=== PATIENT | female | born 1940 | race Native Hawaiian/Other Pacific Islander ===

== ENCOUNTER 2016-08-30 11:04 | Emergency (ER) | payer SELFPAY ==
[2016-08-30] MEDS ORDERED: NAPROXEN 250 MG TABLET PO STA (12:42)
[2016-08-30] MEDS ORDERED: HYDROcod/ACETAM 5/325 MG TABLET PO STA (12:42)
[2016-08-30] MEDS ORDERED: SULFAMETH/TRIMETH DS 800/160 MG TABLET PO STA (12:42)
[2016-08-30] MEDS ORDERED: HYDROcod/ACETAM 5/325 MG TABLET ONE (12:44)
[2016-08-30] MEDS ORDERED: NAPROXEN 250 MG TABLET PO ONE (12:45)
[2016-08-30] MEDS ORDERED: SULFAMETH/TRIMETH DS 800/160 MG TABLET PO ONE (12:45)
== END 2016-08-30 14:27 | disposition home or self-care (01) ==
DX: L03.811 Cellulitis of head [any part, except face] (principal); H60.312 Diffuse otitis externa, left ear; I15.9 Secondary hypertension, unspecified; E11.9 Type 2 diabetes mellitus without complications; Z79.84 Long term (current) use of oral hypoglycemic drugs; Z86.73 Personal history of transient ischemic attack (TIA), and cerebral infarction without residual deficits; Z79.82 Long term (current) use of aspirin
CPT/HCPCS: 70450; 99283; 99284; A9270

== ENCOUNTER 2016-09-07 | Outpatient (CLI) | payer SELFPAY | END 2016-09-07 08:51 | disposition critical access hospital (66) | DX: R10.9 Unspecified abdominal pain (principal) | CPT/HCPCS: A0425; A0429 ==

== ENCOUNTER 2016-09-07 09:15 | Inpatient (IN) | payer SELFPAY ==
[2016-09-07] MEDS ORDERED: HYDROmorphone 1 MG/ML SYRINGE IVP STA ×2 (09:25→12:19)
[2016-09-07] MEDS ORDERED: ONDANSETRON 4 MG/2 ML VIAL IVP STA (09:25)
[2016-09-07] MEDS ORDERED: HYDROmorphone 1 MG/ML SYRINGE ONE ×2 (09:27→12:19)
[2016-09-07] MEDS ORDERED: ONDANSETRON 4 MG/2 ML VIAL ONE (09:27)
[2016-09-07] MEDS ORDERED: SODIUM CHLORIDE 0.9% 1,000 ML IV ONE ×2 (11:26)
[2016-09-07] MEDS ORDERED: PIPERACILLIN/TAZOBACTAM 4.5 GM in SODIUM CHLORIDE 0.9% MINIBAG 100 ML IV STA (13:24)
[2016-09-07] MEDS ORDERED: metroNIDAZOLE 500 MG/100 ML 100 ML IV ONE (13:24)
[2016-09-07] MEDS ORDERED: metroNIDAZOLE 500 MG/100 ML 100 ML ONE (13:43)
[2016-09-07] MEDS ORDERED: LACTATED RINGERS 1,000 ML IV ONE ×2 (14:06)
[2016-09-07] MEDS ORDERED: BUPIVACAINE 0.5%-EPI 1:200000 PF 30 ML VIAL SUBQ ONE ×2 (15:39)
[2016-09-07] MEDS ORDERED: GLUCAGON 1 MG/ML VIAL SUBQ PRN (16:08)
[2016-09-07] MEDS ORDERED: DEXTROSE 5% 1,000 ML IV PRN (16:08)
[2016-09-07] MEDS ORDERED: DEXTROSE GEL 37.5 GM TUBE PO PRN (16:08)
[2016-09-07] MEDS ORDERED: DEXTROSE 50% ABBOJECT 25 GM/50 ML SYRINGE IVP PRN (16:08)
[2016-09-07] MEDS ORDERED: ONDANSETRON 4 MG/2 ML VIAL IVP PRN (16:15)
[2016-09-07] MEDS ORDERED: PHENOL THROAT SPRAY 177 ML MM PRN (16:18)
[2016-09-07] MEDS ORDERED: HYDROmorphone 1 MG/ML SYRINGE IVP ONE (16:23)
[2016-09-07] MEDS ORDERED: D5NS W/20 MEQ KCL 1,000 ML IV SCH (17:00)
[2016-09-07] MEDS: PIPERACILLIN/TAZOBACTAM 3.375 GM in SODIUM CHLORIDE 0.9% MINIBAG 100 ML IV SCH (18:03)
[2016-09-07] MEDS: HYDROmorphone 1 MG/ML SYRINGE IVP PRN (19:30)
[2016-09-07] MEDS: PANTOPRAZOLE 40 MG VIAL IVP SCH (21:32)
[2016-09-07] MEDS: SODIUM CHLORIDE FLUSH 0.9% 10 ML SYRINGE IVP SCH (21:32)
[2016-09-07] MEDS: NS W/20 MEQ KCL 1,000 ML IV SCH (21:52)
[2016-09-08] MEDS: PIPERACILLIN/TAZOBACTAM 3.375 GM in SODIUM CHLORIDE 0.9% MINIBAG 100 ML IV SCH ×3 (00:18→11:34)
[2016-09-08] MEDS: INSULIN REGULAR HUMAN 100 UNIT/1 ML 10 ML MDV SUBQ SCH ×4 (00:30→19:32)
[2016-09-08] MEDS: HYDROmorphone 1 MG/ML SYRINGE IVP PRN ×3 (02:31→08:29)
[2016-09-08] MEDS: SODIUM CHLORIDE FLUSH 0.9% 10 ML SYRINGE IVP SCH ×3 (05:27→21:37)
[2016-09-08] MEDS ORDERED: HYDROmorphone PCA 10 MG IV PRN (09:10)
[2016-09-08] MEDS ORDERED: diphenhydrAMINE INJ 50 MG/ML VIAL IVP PRN (09:10)
[2016-09-08] MEDS: SODIUM CHLORIDE FLUSH 0.9% 10 ML SYRINGE IVP PRN (09:51)
[2016-09-08] MEDS: PANTOPRAZOLE 40 MG VIAL IVP SCH ×2 (09:51→21:37)
[2016-09-08] MEDS: NS W/20 MEQ KCL 1,000 ML IV SCH (09:52)
[2016-09-08] MEDS ORDERED: cloNIDine 0.2 MG PATCH TOP SCH (10:00)
[2016-09-08] MEDS: ENALAPRILAT 1.25 MG/ML VIAL IVP SCH ×2 (11:34→17:57)
[2016-09-08] MEDS: METOPROLOL 5 MG/5 ML VIAL IVP SCH ×3 (11:35→23:16)
[2016-09-08] MEDS ORDERED: hydrALAZINE INJ 20 MG/ML VIAL IVP SCH (21:21)
[2016-09-09] MEDS: NS W/20 MEQ KCL 1,000 ML IV SCH ×5 (00:52→15:10)
[2016-09-09] MEDS: ENALAPRILAT 1.25 MG/ML VIAL IVP SCH ×4 (02:00→20:32)
[2016-09-09] MEDS: INSULIN REGULAR HUMAN 100 UNIT/1 ML 10 ML MDV SUBQ SCH ×4 (02:54→17:58)
[2016-09-09] MEDS: SODIUM CHLORIDE FLUSH 0.9% 10 ML SYRINGE IVP SCH ×4 (05:12→20:32)
[2016-09-09] MEDS: METOPROLOL 5 MG/5 ML VIAL IVP SCH ×3 (05:12→18:21)
[2016-09-09] MEDS: PANTOPRAZOLE 40 MG VIAL IVP SCH ×2 (08:54→20:31)
[2016-09-09] MEDS: SODIUM CHLORIDE FLUSH 0.9% 10 ML SYRINGE IVP PRN ×2 (08:54→18:24)
[2016-09-09] MEDS ORDERED: SODIUM CHLORIDE FLUSH 0.9% 10 ML SYRINGE IVP PRN (09:06)
[2016-09-09] MEDS ORDERED: SODIUM CHLORIDE INHALATION 3 ML NEB ONE (17:02)
[2016-09-10] MEDS: SODIUM CHLORIDE FLUSH 0.9% 10 ML SYRINGE IVP SCH ×7 (17:11→22:43)
[2016-09-10] MEDS: PANTOPRAZOLE 40 MG VIAL IVP SCH ×2 (17:13→20:47)
[2016-09-10] MEDS: METOPROLOL 5 MG/5 ML VIAL IVP SCH ×3 (17:13→19:17)
[2016-09-10] MEDS: ENALAPRILAT 1.25 MG/ML VIAL IVP SCH ×4 (17:13→20:47)
[2016-09-10] MEDS: NS W/20 MEQ KCL 1,000 ML IV SCH ×3 (17:13→20:48)
[2016-09-10] MEDS: INSULIN REGULAR HUMAN 100 UNIT/1 ML 10 ML MDV SUBQ SCH ×3 (17:13→18:44)
[2016-09-10] MEDS: SODIUM CHLORIDE FLUSH 0.9% 10 ML SYRINGE IVP PRN (19:22)
[2016-09-10] MEDS ORDERED: cloNIDine 0.3 MG PATCH TOP SCH (22:00)
[2016-09-11] MEDS ORDERED: cloNIDine 0.2 MG PATCH TOP SCH
[2016-09-11] MEDS ORDERED: cloNIDine 0.1 MG PATCH TOP SCH
[2016-09-11] MEDS: METOPROLOL 5 MG/5 ML VIAL IVP SCH ×4 (00:21→18:04)
[2016-09-11] MEDS: ENALAPRILAT 1.25 MG/ML VIAL IVP SCH ×4 (01:45→20:07)
[2016-09-11] MEDS: NS W/20 MEQ KCL 1,000 ML IV SCH ×2 (07:07→16:55)
[2016-09-11] MEDS: PANTOPRAZOLE 40 MG VIAL IVP SCH ×2 (07:07→20:08)
[2016-09-11] MEDS: INSULIN REGULAR HUMAN 100 UNIT/1 ML 10 ML MDV SUBQ SCH ×4 (07:38→18:04)
[2016-09-11] MEDS: SODIUM CHLORIDE FLUSH 0.9% 10 ML SYRINGE IVP SCH ×6 (07:39→20:09)
[2016-09-11] MEDS: ENOXAPARIN 40 MG/0.4 ML SYRINGE SUBQ SCH (11:51)
[2016-09-11] MEDS: hydrALAZINE INJ 20 MG/ML VIAL IVP PRN ×3 (12:48→21:29)
[2016-09-11] MEDS ORDERED: LEVALBUTEROL 1.25 MG INH PRN (13:00)
[2016-09-12] MEDS: METOPROLOL 5 MG/5 ML VIAL IVP SCH ×4 (00:09→18:07)
[2016-09-12] MEDS: INSULIN REGULAR HUMAN 100 UNIT/1 ML 10 ML MDV SUBQ SCH ×4 (01:41→18:15)
[2016-09-12] MEDS: ENALAPRILAT 1.25 MG/ML VIAL IVP SCH ×4 (01:45→19:20)
[2016-09-12] MEDS: NS W/20 MEQ KCL 1,000 ML IV SCH ×2 (01:48→11:57)
[2016-09-12] MEDS: SODIUM CHLORIDE FLUSH 0.9% 10 ML SYRINGE IVP SCH ×6 (05:33→22:48)
[2016-09-12] MEDS: PIPERACILLIN/TAZOBACTAM 3.375 GM in SODIUM CHLORIDE 0.9% MINIBAG 100 ML IV SCH ×3 (09:52→22:46)
[2016-09-12] MEDS: ENOXAPARIN 40 MG/0.4 ML SYRINGE SUBQ SCH (09:53)
[2016-09-12] MEDS: PANTOPRAZOLE 40 MG VIAL IVP SCH ×2 (09:54→22:35)
[2016-09-12] MEDS: SODIUM CHLORIDE FLUSH 0.9% 10 ML SYRINGE IVP PRN (09:55)
[2016-09-12] MEDS ORDERED: VANCOMYCIN INJ 2 GM in SODIUM CHLORIDE 0.9% 500 ML IV SCH (10:00)
[2016-09-12] MEDS ORDERED: D5NS W/20 MEQ KCL 1,000 ML IV ONE (12:05)
[2016-09-12] MEDS: hydrALAZINE INJ 20 MG/ML VIAL IVP PRN ×2 (13:21→18:50)
[2016-09-13] MEDS: METOPROLOL 5 MG/5 ML VIAL IVP SCH ×3 (00:01→13:23)
[2016-09-13] MEDS: VANCOMYCIN INJ 1 GM, VANCOMYCIN INJ 250 MG in SODIUM CHLORIDE 0.9% 250 ML IV SCH ×3 (00:07→21:53)
[2016-09-13] MEDS: INSULIN REGULAR HUMAN 100 UNIT/1 ML 10 ML MDV SUBQ SCH ×4 (00:17→16:54)
[2016-09-13] MEDS: PIPERACILLIN/TAZOBACTAM 3.375 GM in SODIUM CHLORIDE 0.9% MINIBAG 100 ML IV SCH ×4 (02:05→21:37)
[2016-09-13] MEDS: ENALAPRILAT 1.25 MG/ML VIAL IVP SCH ×4 (02:05→20:13)
[2016-09-13] MEDS: SODIUM CHLORIDE FLUSH 0.9% 10 ML SYRINGE IVP SCH ×6 (03:16→21:55)
[2016-09-13] MEDS: hydrALAZINE INJ 20 MG/ML VIAL IVP PRN (09:22)
[2016-09-13] MEDS: SODIUM CHLORIDE FLUSH 0.9% 10 ML SYRINGE IVP PRN ×2 (09:47→15:08)
[2016-09-13] MEDS: ENOXAPARIN 40 MG/0.4 ML SYRINGE SUBQ SCH (09:47)
[2016-09-13] MEDS: PANTOPRAZOLE 40 MG VIAL IVP SCH ×2 (09:47→21:41)
[2016-09-13] MEDS: OFLOXACIN 0.3% OPHTH DROPS EACHEAR SCH ×3 (13:19→21:56)
[2016-09-13] MEDS: D5.45NS W/20 MEQ KCL 1,000 ML IV SCH (13:20)
[2016-09-13] MEDS ORDERED: hydrALAZINE INJ 20 MG/ML VIAL IM SCH (15:00)
[2016-09-13] MEDS ORDERED: hydrALAZINE INJ 20 MG/ML VIAL IVP SCH ×2 (15:00→18:35)
[2016-09-13] MEDS ORDERED: diltiaZEM INJ 5 MG/ML VIAL IVP ONE (16:00)
[2016-09-13] MEDS: LABETALOL 20 MG/4 ML SYRINGE IVP PRN (17:26)
[2016-09-13] MEDS ORDERED: SODIUM CHLORIDE INHALATION 3 ML NEB ONE (17:29)
[2016-09-13] MEDS: hydrALAZINE INJ 20 MG/ML VIAL IVP SCH (21:42)
[2016-09-14] MEDS: INSULIN REGULAR HUMAN 100 UNIT/1 ML 10 ML MDV SUBQ SCH ×4 (00:35→18:43)
[2016-09-14] MEDS: SODIUM CHLORIDE FLUSH 0.9% 10 ML SYRINGE IVP PRN (01:09)
[2016-09-14] MEDS: LABETALOL 20 MG/4 ML SYRINGE IVP PRN (01:09)
[2016-09-14] MEDS: ENALAPRILAT 1.25 MG/ML VIAL IVP SCH ×4 (02:44→20:19)
[2016-09-14] MEDS: PIPERACILLIN/TAZOBACTAM 3.375 GM in SODIUM CHLORIDE 0.9% MINIBAG 100 ML IV SCH ×4 (04:27→20:21)
[2016-09-14] MEDS: hydrALAZINE INJ 20 MG/ML VIAL IVP SCH ×4 (04:27→21:59)
[2016-09-14] MEDS: SODIUM CHLORIDE FLUSH 0.9% 10 ML SYRINGE IVP SCH ×6 (06:21→22:01)
[2016-09-14] MEDS: OFLOXACIN 0.3% OPHTH DROPS EACHEAR SCH ×3 (06:38→22:00)
[2016-09-14] MEDS: D5.45NS W/20 MEQ KCL 1,000 ML IV SCH (06:38)
[2016-09-14] MEDS ORDERED: DIATR MEGLU/DIATRIZOATE SODIUM 120 ML BOTTLE PO ONE (09:24)
[2016-09-14] MEDS: ENOXAPARIN 40 MG/0.4 ML SYRINGE SUBQ SCH (09:47)
[2016-09-14] MEDS: VANCOMYCIN INJ 1 GM, VANCOMYCIN INJ 250 MG in SODIUM CHLORIDE 0.9% 250 ML IV SCH (10:42)
[2016-09-14] MEDS: cloNIDine 0.1 MG TABLET PO SCH ×2 (14:14→20:20)
[2016-09-14] MEDS ORDERED: POTASSIUM CHLORIDE 20 MEQ TABLET PO ONE (14:45)
[2016-09-14] MEDS: MAGNESIUM SULFATE 2 GRAM 50 ML IV SCH ×2 (15:06→16:29)
[2016-09-14] MEDS ORDERED: oxyCOD/ACETAMIN 5 MG/325 MG TABLET PO PRN (17:42)
[2016-09-15] MEDS: INSULIN REGULAR HUMAN 100 UNIT/1 ML 10 ML MDV SUBQ SCH ×3 (00:44→11:35)
[2016-09-15] MEDS: D5.45NS W/20 MEQ KCL 1,000 ML IV SCH (00:46)
[2016-09-15] MEDS: ENALAPRILAT 1.25 MG/ML VIAL IVP SCH ×2 (02:19→08:28)
[2016-09-15] MEDS: hydrALAZINE INJ 20 MG/ML VIAL IVP SCH ×2 (03:46→10:14)
[2016-09-15] MEDS: PIPERACILLIN/TAZOBACTAM 3.375 GM in SODIUM CHLORIDE 0.9% MINIBAG 100 ML IV SCH ×2 (03:47→08:39)
[2016-09-15] MEDS: OFLOXACIN 0.3% OPHTH DROPS EACHEAR SCH (07:05)
[2016-09-15] MEDS: SODIUM CHLORIDE FLUSH 0.9% 10 ML SYRINGE IVP SCH ×2 (07:06)
[2016-09-15] MEDS ORDERED: NEUTRA-PHOS 250 MG TABLET PO SCH (08:00)
[2016-09-15] MEDS ORDERED: POTASSIUM CHLORIDE 20 MEQ TABLET PO SCH (08:00)
[2016-09-15] MEDS: cloNIDine 0.1 MG TABLET PO SCH (08:27)
[2016-09-15] MEDS: ENOXAPARIN 40 MG/0.4 ML SYRINGE SUBQ SCH (08:41)
[2016-09-15] MEDS ORDERED: LIDOCAINE-MPF 2% 5 ML VIAL IM ONE (12:49)
[2016-09-15] MEDS ORDERED: ESMOLOL 100 MG/10 ML VIAL IVP ONE (12:49)
[2016-09-15] MEDS ORDERED: NEOSTIGMINE 1 MG/1 ML 10 ML MDV IVP ONE (12:49)
[2016-09-15] MEDS ORDERED: ACETAMINOPHEN 1,000 MG/100 ML VIAL IV ONE (12:49)
[2016-09-15] MEDS ORDERED: GLYCOPYRROLATE 1 MG/5 ML VIAL IVP ONE (12:49)
[2016-09-15] MEDS ORDERED: SUCCINYLCHOLINE 200 MG/10 ML VIAL IVP ONE (12:49)
[2016-09-15] MEDS ORDERED: METOPROLOL 5 MG/5 ML VIAL IVP ONE (12:49)
[2016-09-15] MEDS ORDERED: PROPOFOL 200 MG/20 ML VIAL IVP ONE (12:49)
[2016-09-15] MEDS ORDERED: ONDANSETRON 4 MG/2 ML VIAL IVP ONE (12:49)
[2016-09-15] MEDS ORDERED: ROCURONIUM 50 MG/5 ML VIAL IVP ONE (12:49)
[2016-09-15] MEDS ORDERED: PHENYLEPHRINE 50 MG/5 ML VIAL IV ONE (12:49)
== END 2016-09-15 12:50 | disposition home or self-care (01) | DRG 329 ==
PROC: 0DU907Z Supplement Duodenum with Autologous Tissue Substitute, Open Approach (ICD-10-PCS; principal; 2016-09-07 14:00)
DX: K26.5 Chronic or unspecified duodenal ulcer with perforation (principal); K65.9 Peritonitis, unspecified; E87.1 Hypo-osmolality and hyponatremia; E87.6 Hypokalemia; E83.39 Other disorders of phosphorus metabolism; E83.42 Hypomagnesemia; I11.9 Hypertensive heart disease without heart failure; K74.60 Unspecified cirrhosis of liver; E11.65 Type 2 diabetes mellitus with hyperglycemia; E11.39 Type 2 diabetes mellitus with other diabetic ophthalmic complication; E66.01 Morbid (severe) obesity due to excess calories; Z68.33 Body mass index [BMI] 33.0-33.9, adult; H60.312 Diffuse otitis externa, left ear; Z86.73 Personal history of transient ischemic attack (TIA), and cerebral infarction without residual deficits; Z87.891 Personal history of nicotine dependence; Z79.2 Long term (current) use of antibiotics; Z79.84 Long term (current) use of oral hypoglycemic drugs; Z79.82 Long term (current) use of aspirin; Z79.899 Other long term (current) drug therapy; Z66 Do not resuscitate

== ENCOUNTER 2016-09-22 10:30 | Outpatient (CLI) | payer SELFPAY ==
[2016-09-22 19:12] LABS: BASOPHILS # (AUTO) 0.1 10^3/uL (0.0-0.1); BASOPHILS % (AUTO) 1.1 %; EOSINOPHILS # (AUTO) 0.4 10^3/uL (0.0-0.7); EOSINOPHILS % (AUTO) 3.7 %; HCT - HEMATOCRIT 40.8 % (37.0-47.0); HGB - HEMOGLOBIN 13.3 g/dL (12.0-16.0); LYMPHOCYTES # (AUTO) 1.1 10^3/uL (1.5-3.5); LYMPHOCYTES % (AUTO) 10.4 %; MEAN CORPUSCULAR HEMOGLOBIN 27.6 pg (27.0-31.0); MEAN CORPUSCULAR HGB CONC 32.6 g/dL (32.0-36.0); MEAN CORPUSCULAR VOLUME 84.7 fL (81.0-99.0); MEAN PLATELET VOLUME 8.3 fL (7.9-10.8); MONOCYTES # (AUTO) 0.9 10^3/uL (0.0-1.0); MONOCYTES % (AUTO) 8.4 %; NEUTROPHILS # (AUTO) 8.2 10^3/uL (1.5-6.6); NEUTROPHILS % (AUTO) 76.4 %; RED BLOOD COUNT 4.82 10^6/uL (4.20-5.40); RED CELL DISTRIBUTION WIDTH 13.9 % (12.0-15.0); UNCORRECTED WHITE BLOOD COUNT 10.7 x10^3/uL; WHITE BLOOD COUNT 10.7 x10^3/uL (4.8-10.8)
[2016-09-22 19:22] LABS: ALBUMIN/GLOBULIN RATIO 0.9 (1.0-2.2); BILIRUBIN,TOTAL 0.9 mg/dL (0.2-1.0); CALCIUM 9.5 mg/dL (8.5-10.3); CREATININE 0.7 mg/dL (0.4-1.0); MAGNESIUM 1.7 mg/dL (1.7-2.8); PHOSPHORUS 2.9 mg/dL (2.5-4.6); POTASSIUM 2.8 mmol/L (3.5-5.0); TOTAL PROTEIN 7.5 g/dL (6.7-8.2)
== END 2016-09-22 10:31 | disposition home or self-care (01) ==
LOC: LAB.N 10:30
PROVIDERS: ATTEND Family Medicine
DX: E87.6 Hypokalemia (principal); E83.39 Other disorders of phosphorus metabolism; E83.42 Hypomagnesemia; I10 Essential (primary) hypertension
CPT/HCPCS: 36415; 80053; 83735; 84100; 85025

== ENCOUNTER 2016-10-10 11:21 | Outpatient (CLI) | payer SELFPAY | END 2016-10-10 11:22 | disposition home or self-care (01) | DX: E87.6 Hypokalemia (principal); I10 Essential (primary) hypertension ==

== ENCOUNTER 2016-10-30 12:23 | Inpatient (IN) | payer SELFPAY ==
[2016-10-30] MEDS ORDERED: SODIUM CHLORIDE 0.9% 1,000 ML IV ONE ×2 (12:43)
[2016-10-30] MEDS ORDERED: SODIUM CHLORIDE FLUSH 0.9% 10 ML SYRINGE IVP PRN (15:35)
[2016-10-30] MEDS ORDERED: ONDANSETRON 4 MG/2 ML VIAL IVP PRN (15:35)
[2016-10-30] MEDS ORDERED: IOPAMIDOL-300 100 ML VIAL IVP ONE (15:58)
[2016-10-30] MEDS: INSULIN ASPART 300 UNIT/3 ML PEN SUBQ SCH ×2 (17:34→21:44)
[2016-10-30] MEDS: SUCRALFATE 1 GM/10 ML UDC PO SCH ×2 (17:36→21:44)
[2016-10-30] MEDS: PANTOPRAZOLE 40 MG TABLET PO SCH (17:36)
[2016-10-30] MEDS: SODIUM CHLORIDE 0.9% 1,000 ML IV SCH (17:36)
[2016-10-30] MEDS: SODIUM CHLORIDE FLUSH 0.9% 10 ML SYRINGE IVP SCH (21:40)
[2016-10-30] MEDS ORDERED: ACETAMINOPHEN 325 MG TABLET PO PRN (23:05)
[2016-10-30] MEDS ORDERED: AMOX/CLAV 875 MG/125 MG TABLET PO SCH (23:45)
[2016-10-31] MEDS: SODIUM CHLORIDE 0.9% 1,000 ML IV SCH (01:24)
[2016-10-31] MEDS: PANTOPRAZOLE 40 MG TABLET PO SCH (06:36)
[2016-10-31] MEDS: SUCRALFATE 1 GM/10 ML UDC PO SCH ×2 (06:36→12:02)
[2016-10-31] MEDS: SODIUM CHLORIDE FLUSH 0.9% 10 ML SYRINGE IVP SCH ×2 (06:47→12:04)
[2016-10-31] MEDS ORDERED: BISACODYL 10 MG SUPP PR ONE (08:00)
[2016-10-31] MEDS ORDERED: POTASSIUM CHLORIDE 20 MEQ TABLET PO SCH (08:00)
[2016-10-31] MEDS ORDERED: SACCHAROMYCES BOULARDII 250 MG CAPSULE PO SCH (08:00)
[2016-10-31] MEDS ORDERED: POLYETHYLENE GLYCOL 3350 17 GM PACKET PO SCH (09:00)
[2016-10-31] MEDS ORDERED: AMOX/CLAV 500 MG/125 MG TABLET PO SCH (09:00)
[2016-10-31] MEDS: INSULIN ASPART 300 UNIT/3 ML PEN SUBQ SCH ×2 (09:02→12:00)
[2016-10-31] MEDS: LIDOCAINE JELLY 2% 5 ML TUBE TOP ONE ×2 (09:35→11:45)
[2016-10-31] MEDS ORDERED: WITCH HAZEL/GLYCERIN 1 EACH MED..PAD TOP PRN (11:01)
[2016-10-31] MEDS ORDERED: LIDOCAINE TOPICAL 4% 50 ML BOTTLE MM PRN (13:01)
[2016-10-31] MEDS ORDERED: LIDOCAINE JELLY 2% 30 ML TUBE TOP PRN (13:16)
[2016-10-31] MEDS ORDERED: LIDOCAINE JELLY 2% 5 ML TUBE TOP PRN (13:18)
== END 2016-10-31 16:45 | disposition home or self-care (01) | DRG 641 ==
DX: E87.1 Hypo-osmolality and hyponatremia (principal); K56.41 Fecal impaction; D72.829 Elevated white blood cell count, unspecified; E86.9 Volume depletion, unspecified; I10 Essential (primary) hypertension; E11.9 Type 2 diabetes mellitus without complications; H66.90 Otitis media, unspecified, unspecified ear; D69.6 Thrombocytopenia, unspecified; E66.9 Obesity, unspecified; Z68.27 Body mass index [BMI] 27.0-27.9, adult; I25.10 Atherosclerotic heart disease of native coronary artery without angina pectoris; Z87.11 Personal history of peptic ulcer disease; Z79.84 Long term (current) use of oral hypoglycemic drugs; Z79.82 Long term (current) use of aspirin; Z79.899 Other long term (current) drug therapy; Z86.73 Personal history of transient ischemic attack (TIA), and cerebral infarction without residual deficits; Z87.891 Personal history of nicotine dependence; Z66 Do not resuscitate

== ENCOUNTER 2016-11-02 09:27 | Outpatient (CLI) | payer SELFPAY | END 2016-11-02 23:59 | DX: E87.1 Hypo-osmolality and hyponatremia (principal) ==

== ENCOUNTER 2016-11-03 10:18 | Outpatient (CLI) | payer SELFPAY | END 2016-11-03 10:19 | disposition home or self-care (01) | DX: E87.1 Hypo-osmolality and hyponatremia (principal); E83.42 Hypomagnesemia; E87.6 Hypokalemia ==

== ENCOUNTER 2016-11-04 05:11 | Outpatient (CLI) | payer SELFPAY | END 2016-11-04 05:12 | disposition critical access hospital (66) | DX: R53.1 Weakness (principal); R47.81 Slurred speech | CPT/HCPCS: A0425; A0429 ==

== ENCOUNTER 2016-11-04 05:29 | Inpatient (IN) | payer SELFPAY ==
[2016-11-04] MEDS ORDERED: METOPROLOL 5 MG/5 ML VIAL IVP STA ×3 (05:41→06:33)
[2016-11-04] MEDS ORDERED: METOPROLOL 5 MG/5 ML VIAL IVP ONE ×4 (05:50→11:02)
[2016-11-04] MEDS ORDERED: NITROGLYCERIN 2% PASTE TOP STA (06:33)
[2016-11-04] MEDS ORDERED: SODIUM CHLORIDE 0.9% 500 ML IV ONE (06:33)
[2016-11-04] MEDS ORDERED: IOPAMIDOL-300 100 ML VIAL IVP ONE (07:29)
[2016-11-04] MEDS ORDERED: NITROGLYCERIN 2% PASTE TOP ONE (07:30)
[2016-11-04] MEDS ORDERED: ASPIRIN CHEW 81 MG TABLET PO STA (07:55)
[2016-11-04] MEDS ORDERED: MORPHINE 2 MG/ML SYRINGE IVP STA (07:55)
[2016-11-04] MEDS ORDERED: cefTRIAXone 1 GM in SODIUM CHLORIDE 0.9% MINIBAG 100 ML IV STA (08:02)
[2016-11-04] MEDS ORDERED: POTASSIUM BICARB 25 MEQ TABLET PO STA (08:02)
[2016-11-04] MEDS ORDERED: POTASSIUM CHLOR 10 MEQ/100 ML 100 ML IV ONE ×3 (08:02→12:51)
[2016-11-04] MEDS ORDERED: POTASSIUM BICARB 25 MEQ TABLET PO ONE (08:03)
[2016-11-04] MEDS ORDERED: ASPIRIN CHEW 81 MG TABLET ONE (08:03)
[2016-11-04] MEDS ORDERED: MORPHINE 2 MG/ML SYRINGE ONE (08:03)
[2016-11-04] MEDS ORDERED: cefTRIAXone 1 GM VIAL ONE (08:04)
[2016-11-04] MEDS ORDERED: LABETALOL 20 MG/4 ML SYRINGE IVP STA (09:10)
[2016-11-04] MEDS ORDERED: LABETALOL 20 MG/4 ML SYRINGE IVP ONE (09:11)
[2016-11-04] MEDS ORDERED: ONDANSETRON ODT 4 MG TABLET TL PRN (09:59)
[2016-11-04] MEDS ORDERED: SODIUM CHLORIDE FLUSH 0.9% 10 ML SYRINGE IVP PRN (09:59)
[2016-11-04] MEDS ORDERED: SODIUM CHLORIDE 0.9% 1,000 ML IV SCH (10:00)
[2016-11-04] MEDS ORDERED: PANTOPRAZOLE 40 MG TABLET PO SCH (10:00)
[2016-11-04] MEDS ORDERED: ACETAMINOPHEN 325 MG TABLET PO PRN (10:32)
[2016-11-04] MEDS ORDERED: GADOBUTROL 7.5 MMOL/7.5 ML VIAL IVP ONE (10:33)
[2016-11-04] MEDS ORDERED: METOPROLOL TARTRATE 25 MG TABLET PO SCH (11:00)
[2016-11-04] MEDS ORDERED: POTASSIUM CHLORIDE 20 MEQ TABLET PO SCH (11:00)
[2016-11-04] MEDS: SODIUM CHLORIDE FLUSH 0.9% 10 ML SYRINGE IVP SCH ×2 (12:55→21:33)
[2016-11-04] MEDS: PANTOPRAZOLE 40 MG TABLET PO SCH (12:55)
[2016-11-04] MEDS: LISINOPRIL 5 MG TABLET PO SCH (12:55)
[2016-11-04] MEDS: INSULIN ASPART 300 UNIT/3 ML PEN SUBQ SCH ×2 (17:45→21:33)
[2016-11-04] MEDS: cloNIDine 0.1 MG TABLET PO SCH (21:28)
[2016-11-04] MEDS: POTASSIUM CHLOR 10 MEQ/100 ML 100 ML IV SCH (22:57)
[2016-11-04] MEDS: SODIUM CHLORIDE 0.9% 1,000 ML IV SCH (22:57)
[2016-11-05] MEDS: POTASSIUM CHLOR 10 MEQ/100 ML 100 ML IV SCH ×3 (00:06→02:07)
[2016-11-05] MEDS: PANTOPRAZOLE 40 MG TABLET PO SCH (06:11)
[2016-11-05] MEDS: SODIUM CHLORIDE FLUSH 0.9% 10 ML SYRINGE IVP SCH ×3 (06:19→20:27)
[2016-11-05] MEDS ORDERED: METOPROLOL SUCCINATE 50 MG TABLET PO SCH (09:00)
[2016-11-05] MEDS ORDERED: CIPROFLOXACIN 400 MG/200 ML 200 ML IV SCH ×2 (09:00→18:00)
[2016-11-05] MEDS ORDERED: levoFLOXacin 250 MG TABLET PO SCH (09:00)
[2016-11-05] MEDS: LISINOPRIL 5 MG TABLET PO SCH (09:08)
[2016-11-05] MEDS: cloNIDine 0.1 MG TABLET PO SCH ×2 (09:09→20:14)
[2016-11-05] MEDS: POLYETHYLENE GLYCOL 3350 17 GM PACKET PO SCH (09:12)
[2016-11-05] MEDS: ASPIRIN EC 81 MG TABLET PO SCH (09:18)
[2016-11-05] MEDS: INSULIN ASPART 300 UNIT/3 ML PEN SUBQ SCH ×4 (09:22→21:24)
[2016-11-05] MEDS: ENOXAPARIN 40 MG/0.4 ML SYRINGE SUBQ SCH (09:23)
[2016-11-05] MEDS: SODIUM CHLORIDE 0.9% 1,000 ML IV SCH ×2 (15:34→17:35)
[2016-11-05] MEDS: PIPERACILLIN/TAZOBACTAM 3.375 GM in SODIUM CHLORIDE 0.9% MINIBAG 100 ML IV SCH (18:54)
[2016-11-05] MEDS: ACETAMINOPHEN 325 MG TABLET PO PRN (19:27)
[2016-11-05] MEDS: METOPROLOL SUCCINATE 50 MG TABLET PO SCH (20:14)
[2016-11-06] MEDS: PIPERACILLIN/TAZOBACTAM 3.375 GM in SODIUM CHLORIDE 0.9% MINIBAG 100 ML IV SCH ×5 (01:54→23:58)
[2016-11-06] MEDS: SODIUM CHLORIDE FLUSH 0.9% 10 ML SYRINGE IVP SCH ×3 (06:38→20:27)
[2016-11-06] MEDS: PANTOPRAZOLE 40 MG TABLET PO SCH (06:46)
[2016-11-06] MEDS: ACETAMINOPHEN 325 MG TABLET PO PRN ×2 (07:38→21:00)
[2016-11-06] MEDS: SENNA 8.6 MG TABLET PO SCH (08:06)
[2016-11-06] MEDS: ASPIRIN EC 81 MG TABLET PO SCH (08:06)
[2016-11-06] MEDS: LISINOPRIL 5 MG TABLET PO SCH (08:06)
[2016-11-06] MEDS: cloNIDine 0.1 MG TABLET PO SCH ×2 (08:11→20:27)
[2016-11-06] MEDS: METOPROLOL SUCCINATE 50 MG TABLET PO SCH ×2 (08:15→20:26)
[2016-11-06] MEDS: DOCUSATE SODIUM 250 MG CAPSULE PO SCH (08:16)
[2016-11-06] MEDS: POLYETHYLENE GLYCOL 3350 17 GM PACKET PO SCH (08:17)
[2016-11-06] MEDS: INSULIN ASPART 300 UNIT/3 ML PEN SUBQ SCH ×4 (08:21→20:26)
[2016-11-06] MEDS: ENOXAPARIN 40 MG/0.4 ML SYRINGE SUBQ SCH (08:28)
[2016-11-06] MEDS ORDERED: levoFLOXacin 250 MG TABLET PO SCH (09:00)
[2016-11-06] MEDS ORDERED: MAGNESIUM HYDROXIDE 2,400 MG/30 ML UDC PO SCH (20:43)
[2016-11-07] MEDS: LABETALOL 20 MG/4 ML SYRINGE IVP PRN ×2 (00:21→07:38)
[2016-11-07] MEDS: ACETAMINOPHEN 325 MG TABLET PO PRN ×2 (01:21→06:15)
[2016-11-07] MEDS ORDERED: BISACODYL 10 MG SUPP PR PRN (05:38)
[2016-11-07] MEDS: PANTOPRAZOLE 40 MG TABLET PO SCH (06:16)
[2016-11-07] MEDS: PIPERACILLIN/TAZOBACTAM 3.375 GM in SODIUM CHLORIDE 0.9% MINIBAG 100 ML IV SCH ×3 (06:40→17:58)
[2016-11-07] MEDS: SODIUM CHLORIDE FLUSH 0.9% 10 ML SYRINGE IVP SCH ×2 (07:40→11:56)
[2016-11-07] MEDS: INSULIN ASPART 300 UNIT/3 ML PEN SUBQ SCH ×3 (08:23→17:59)
[2016-11-07] MEDS: POLYETHYLENE GLYCOL 3350 17 GM PACKET PO SCH (09:31)
[2016-11-07] MEDS: METOPROLOL SUCCINATE 50 MG TABLET PO SCH (09:32)
[2016-11-07] MEDS: LISINOPRIL 5 MG TABLET PO SCH (09:33)
[2016-11-07] MEDS: ASPIRIN EC 81 MG TABLET PO SCH (09:34)
[2016-11-07] MEDS: cloNIDine 0.1 MG TABLET PO SCH (09:36)
[2016-11-07] MEDS: SENNA 8.6 MG TABLET PO SCH (09:41)
[2016-11-07] MEDS: DOCUSATE SODIUM 250 MG CAPSULE PO SCH (09:41)
[2016-11-07] MEDS: ENOXAPARIN 40 MG/0.4 ML SYRINGE SUBQ SCH (09:42)
[2016-11-07] MEDS ORDERED: POTASSIUM CHLORIDE 20 MEQ/15 ML UDC PO SCH (12:00)
== END 2016-11-07 20:24 | disposition home or self-care (01) | DRG 689 ==
DX: N39.0 Urinary tract infection, site not specified (principal); G93.40 Encephalopathy, unspecified; E87.1 Hypo-osmolality and hyponatremia; R47.01 Aphasia; R22.0 Localized swelling, mass and lump, head; E87.6 Hypokalemia; I10 Essential (primary) hypertension; E11.9 Type 2 diabetes mellitus without complications; E66.01 Morbid (severe) obesity due to excess calories; E78.5 Hyperlipidemia, unspecified; I25.10 Atherosclerotic heart disease of native coronary artery without angina pectoris; Z86.73 Personal history of transient ischemic attack (TIA), and cerebral infarction without residual deficits; Z87.891 Personal history of nicotine dependence; R13.10 Dysphagia, unspecified; Z79.84 Long term (current) use of oral hypoglycemic drugs; Z68.30 Body mass index [BMI] 30.0-30.9, adult

== ENCOUNTER 2016-11-17 12:17 | Outpatient (CLI) | payer SELFPAY | END 2016-11-17 23:59 | DX: R50.9 Fever, unspecified (principal) ==

== ENCOUNTER 2016-11-18 14:30 | Outpatient (CLI) | payer SELFPAY | END 2016-11-18 14:45 | disposition home or self-care (01) | DX: I49.9 Cardiac arrhythmia, unspecified (principal) ==

== ENCOUNTER 2016-11-18 16:16 | Emergency (ER) | payer SELFPAY ==
[2016-11-18] MEDS ORDERED: SODIUM CHLORIDE 0.9% 1,000 ML IV ONE (16:53)
[2016-11-18] MEDS ORDERED: ONDANSETRON 4 MG/2 ML VIAL IVP STA (17:17)
[2016-11-18] MEDS ORDERED: MORPHINE 2 MG/ML SYRINGE IVP STA (17:17)
[2016-11-18] MEDS ORDERED: ONDANSETRON 4 MG/2 ML VIAL ONE (17:30)
[2016-11-18] MEDS ORDERED: MORPHINE 2 MG/ML SYRINGE ONE (17:30)
[2016-11-18] MEDS ORDERED: ONDANSETRON ODT 4 MG Prepack 2 TL PRN (19:08)
[2016-11-18] MEDS ORDERED: BENZOCAINE/MENTHOL LOZENGE MM STA (19:08)
[2016-11-18] MEDS ORDERED: CEPHALEXIN 250 MG Prepack 8 PO ONE ×2 (19:09→19:45)
[2016-11-18] MEDS ORDERED: CEPHALEXIN 250 MG CAPSULE PO STA (19:09)
[2016-11-18] MEDS ORDERED: POTASSIUM CHLORIDE 20 MEQ TABLET PO STA (19:12)
[2016-11-18] MEDS ORDERED: POTASSIUM CHLORIDE 20 MEQ TABLET PO ONE (19:45)
[2016-11-18] MEDS ORDERED: ONDANSETRON ODT 4 MG Prepack 2 TL ONE (19:45)
[2016-11-18] MEDS ORDERED: CEPHALEXIN 250 MG CAPSULE PO ONE (19:45)
[2016-11-18] MEDS ORDERED: BENZOCAINE/MENTHOL LOZENGE MM ONE (19:45)
[2016-11-18] MEDS ORDERED: POTASSIUM BICARB 25 MEQ TABLET PO ONE (19:53)
[2016-11-18] MEDS ORDERED: POTASSIUM BICARB 25 MEQ TABLET PO STA (20:06)
== END 2016-11-18 20:11 | disposition home or self-care (01) ==
DX: R11.2 Nausea with vomiting, unspecified (principal); I10 Essential (primary) hypertension; E78.00 Pure hypercholesterolemia, unspecified; E11.9 Type 2 diabetes mellitus without complications; Z79.84 Long term (current) use of oral hypoglycemic drugs; Z86.73 Personal history of transient ischemic attack (TIA), and cerebral infarction without residual deficits; Z87.19 Personal history of other diseases of the digestive system; Z87.891 Personal history of nicotine dependence
CPT/HCPCS: 36415; 74176; 80053; 83690; 85025; 96374; 96375; 99283; 99284; A9270

== ENCOUNTER 2016-12-01 09:47 | Emergency (ER) | payer SELFPAY ==
[2016-12-01] MEDS ORDERED: ONDANSETRON 4 MG/2 ML VIAL ONE (13:16)
[2016-12-01] MEDS ORDERED: HYDROmorphone 1 MG/ML SYRINGE ONE ×2 (13:16→17:56)
[2016-12-01] MEDS: ONDANSETRON 4 MG/2 ML VIAL IVP STA (13:21)
[2016-12-01] MEDS: SODIUM CHLORIDE 0.9% 1,000 ML IV ONE (13:21)
[2016-12-01] MEDS: HYDROmorphone 1 MG/ML SYRINGE IVP STA ×2 (13:21→18:35)
[2016-12-01 13:30] LABS: BASOPHILS # (AUTO) 0.1 10^3/uL (0.0-0.1); BASOPHILS % (AUTO) 0.9 %; EOSINOPHILS # (AUTO) 0.3 10^3/uL (0.0-0.7); EOSINOPHILS % (AUTO) 1.7 %; HCT - HEMATOCRIT 32.1 % (37.0-47.0); HGB - HEMOGLOBIN 10.7 g/dL (12.0-16.0); LYMPHOCYTES # (AUTO) 1.6 10^3/uL (1.5-3.5); LYMPHOCYTES % (AUTO) 9.9 %; MEAN CORPUSCULAR HEMOGLOBIN 27.7 pg (27.0-31.0); MEAN CORPUSCULAR HGB CONC 33.4 g/dL (32.0-36.0); MEAN PLATELET VOLUME 6.8 fL (7.9-10.8); MONOCYTES # (AUTO) 0.7 10^3/uL (0.0-1.0); MONOCYTES % (AUTO) 4.3 %; NEUTROPHILS # (AUTO) 13.3 10^3/uL (1.5-6.6); NEUTROPHILS % (AUTO) 83.2 %; RED BLOOD COUNT 3.86 10^6/uL (4.20-5.40); UNCORRECTED WHITE BLOOD COUNT 15.9 x10^3/uL; WHITE BLOOD COUNT 15.9 x10^3/uL (4.8-10.8)
[2016-12-01 13:38] LABS: BILIRUBIN,URINE NEGATIVE (NEGATIVE)
[2016-12-01 13:46] LABS: ALBUMIN/GLOBULIN RATIO 0.7 (1.0-2.2); BUN - BLOOD UREA NITROGEN 9 mg/dL (6-20); CARBON DIOXIDE - CO2 26 mmol/L (21-32); CHLORIDE 87 mmol/L (101-111); CREATININE 0.5 mg/dL (0.4-1.0); GFR - MDRD 121 (>89); GLUCOSE 136 mg/dL (70-100); LIPASE 17 U/L (22-51); POTASSIUM 3.9 mmol/L (3.5-5.0); SODIUM 124 mmol/L (135-145); TOTAL PROTEIN 7.9 g/dL (6.7-8.2)
[2016-12-01 13:52] LABS: UA w/ MICROSCOPIC CHARGE YES
[2016-12-01 13:53] LABS: UR CULTURE IF IND INDICATED
--- NOTE | 2016-12-01 15:00 | CT Preliminary Report ---
Exam: CT Head W/O IMPRESSION: 1. No acute intracranial CT abnormality. No evidence of hemorrhage or mass effect. 2. Areas of bilateral encephalomalacia are relatively stable. 3. Partially imaged soft tissue mass within the left nasopharynx and left wafer fab technician regions. 4. There is left mastoiditis. There is scattered ethmoid and frontal sinus opacification. [facility] SITE ID: [id number]
[2016-12-01] MEDS ORDERED: PROMETHAZINE 25 MG/1 ML VIAL ONE (15:01)
--- NOTE | 2016-12-01 15:04 | CT Report ---
EXAM: CT HEAD EXAM DATE: 12/01/2016 02:28 PM. CLINICAL HISTORY: Hypertension COMPARISON: 11/04/2016. TECHNIQUE: Multiaxial CT images were obtained from the foramen magnum to the vertex. IV contrast: Non e. Reformats: Coronal. In accordance with CT protocol optimization, one or more of the following dose reduction techniques w ere utilized for this exam: automated exposure control, adjustment of mA and/or KV based on patient s ize, or use of iterative reconstructive technique. FINDINGS: Parenchyma: No evidence of intraparenchymal hemorrhage. No clearly acute also rose-white matter diffe rentiation. Stable areas of hypodensity seen within the right frontal region, right parietal region, left basal ganglia, periventricular white matter hypodensity, and right cerebellum. Extraaxial Spaces: Normal for age. No subdural or epidural collections identified. Ventricles: Normal in size and position. Sinuses: Incompletely imaged soft tissue mass within the posterior left nasopharynx extending to the left supervisory it specialist region. There is left mastoiditis. Bones: No acute bony abnormalities are seen. Other: None. IMPRESSION: 1. No acute intracranial CT abnormality. No evidence of hemorrhage or mass effect. 2. Areas of bilateral encephalomalacia are relatively stable. 3. Partially imaged soft tissue mass within the left nasopharynx and left supervisory it specialist regions. 4. There is left mastoiditis. There is scattered ethmoid and frontal sinus opacification. [facility] Referring Provider Line: [phone] SITE ID: [id number]
[2016-12-01] MEDS: PROMETHAZINE INJ 12.5 MG in SODIUM CHLORIDE 0.9% 50 ML IV STA (15:07)
--- NOTE | 2016-12-01 15:10 | XRAY Preliminary Report ---
Exam: XR Chest 2 View PA/LAT IMPRESSION: No acute intrathoracic plain film abnormality. [facility] SITE ID: [id number]
--- NOTE | 2016-12-01 15:12 | XRAY Report ---
EXAM: CHEST RADIOGRAPHY EXAM DATE: 12/01/2016 02:19 PM. CLINICAL HISTORY: Coarse cough. COMPARISON: 09/11/2016. TECHNIQUE: 2 views. FINDINGS: Lungs/Pleura: No focal opacities evident. No pleural effusion. No pneumothorax. Normal volumes. Mediastinum: Heart and mediastinal contours are unremarkable. 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 No clearly acute bony abnormalities are seen . IMPRESSION: No acute intrathoracic plain film abnormality. [facility] Referring Provider Line: [phone] SITE ID: [id number]
--- NOTE | 2016-12-01 15:22 | ED Physician Documentation ---
History of Present Illness - Stated complaint Stated Complaint: VOMITING - Chief complaint Chief Complaint: Abd Pain - History obtained from History obtained from: Patient, Family (daughter) - Additonal information Additional information: The patient is a 75-year-old female who presents with left-sided headache, and with vomiting since yesterday. She has history of recurrent otitis media which was initially diagnosed 2 or 3 months ago. She was seen by ENT specialist, Dr. Castellanos at [facility], who performed a nasopharyngeal biopsy of a soft tissue mass. His biopsy was reportedly negative, but he referred the patient to a skull-based ENT specialist, Dr. Roxana Hollingsworth, for further evaluation. The patient presents to the emergency department today because of increased left -sided headache with persistent vomiting since yesterday. She denies abdominal pain, fever, or diarrhea. She denies history of similar headaches in the past. Review of Systems Constitutional: denies: Fever Eyes: denies: Irritation Ears: reports: Ear pain (left). denies: Tinnitus/ringing Nose: denies: Congestion Throat: denies: Sore throat Cardiac: denies: Chest pain / pressure Respiratory: reports: Cough. denies: Dyspnea GI: reports: Vomiting. denies: Abdominal Pain, Diarrhea : denies: Dysuria Skin: denies: Rash Musculoskeletal: denies: Back pain Neurologic: reports: Headache. denies: Focal weakness, Numbness PD PAST MEDICAL HISTORY - Past Medical History Past Medical History: Yes Cardiovascular: Hypertension, High cholesterol Respiratory: None Neuro: CVA Endocrine/Autoimmune: Type 2 diabetes GI: None : None HEENT: None Psych: None Musculoskeletal: None Derm: None - Past Surgical History Past Surgical History: No General: Gastric surgery HEENT: Cataracts - Present Medications Home Medications: Ambulatory Orders Medication Instructions Recorded Confirmed Lisinopril [Zestril] 10 mg PO DAILY 09/08/16 12/01/16 metFORMIN [Glucophage] 500 mg PO BIDWM 09/08/16 12/01/16 Clonidine HCl 0.1 mg PO BID #30 tablet 09/15/16 12/01/16 Potassium Chloride [K-Dur] 20 meq PO BID 10/31/16 12/01/16 Metoprolol Succinate [Toprol Xl] 50 mg PO BID 11/04/16 12/01/16 Cephalexin [Keflex] 500 mg PO Q6H #28 capsule 11/18/16 Docusate Sodium 250Mg Capsule 250 mg PO Q4H 11/18/16 12/01/16 [Colace 250Mg Capsule] oxyCODONE [Roxicodone] 10 mg PO Q4H PRN 11/18/16 12/01/16 - Allergies Allergies/Adverse Reactions: Allergies Allergy/AdvReac Type Severity Reaction Status Date / Time No Known Drug Allergies Allergy Verified 11/18/16 16:30 - Social History Does the pt smoke?: No Smoking Status: Former smoker Does the pt drink ETOH?: No Does the pt have substance abuse?: No - Immunizations Immunizations are current?: Yes - POLST Patient has POLST: No PD ED PE NORMAL - Vitals Vital signs reviewed: Yes (hypertensive) - General General: Alert and oriented X 3, Well developed/nourished, Other (Turkmen female who does not speak Bengali. Her daughter translates.) - HEENT HEENT: Atraumatic, EOMI, Pharynx benign, Other (There is a bulge along the inferior wall of the left external ear canal. There is purulence behind the left tympanic membrane.) - Neck Neck: Supple, no meningeal sign, No adenopathy, No JVD - Cardiac Cardiac: RRR, No murmur - Respiratory Respiratory: Clear bilaterally, Other (Coarse sounding cough.) - Abdomen Abdomen: Soft, Non tender - Derm Derm: No rash - Extremities Extremities: No edema, No calf tenderness / cord - Neuro Neuro: Alert and oriented X 3, No motor deficit Results - Vitals Vitals: Vital Signs - 24 hr 12/01/16 12/01/16 12/01/16 10:13 13:43 14:45 Temperature 36.1 C L 36.2 C L Heart Rate 77 70 92 Respiratory 16 16 16 Rate Blood Pressure 179/80 H 215/86 H 219/103 H O2 Saturation 98 98 95 12/01/16 12/01/16 12/01/16 15:46 17:11 19:04 Temperature 36.0 C L 36.6 C Heart Rate 66 87 86 Respiratory 15 18 18 Rate Blood Pressure 197/85 H 245/128 H 200/81 H O2 Saturation 98 100 99 12/01/16 12/01/16 12/01/16 19:08 19:12 19:15 Temperature Heart Rate 83 72 79 Respiratory Rate Blood Pressure 192/81 H 194/82 H 209/89 H O2 Saturation 12/01/16 12/01/16 12/01/16 19:21 19:32 20:10 Temperature Heart Rate 77 78 84 Respiratory Rate Blood Pressure 205/86 H 196/79 H 192/93 H O2 Saturation 96 12/01/16 12/01/16 21:57 23:21 Temperature 36.6 C Heart Rate 63 64 Respiratory 16 14 Rate Blood Pressure 207/85 H 188/79 H O2 Saturation 100 100 Oxygen O2 Source [] Room air O2 Source Room air - Labs Labs: Laboratory Tests 12/01/16 12/01/16 12/01/16 13:10 13:16 13:16 WBC 15.9 H RBC 3.86 L Hgb 10.7 L Hct 32.1 L MCV 83.0 MCH 27.7 MCHC 33.4 RDW 16.0 H Plt Count 557 H MPV 6.8 L Neut # 13.3 H Lymph # 1.6 [place] # 0.7 Eos # 0.3 Baso # 0.1 Absolute Nucleated RBC 0.00 Nucleated RBCs 0.0 Sodium 124 L Potassium 3.9 Chloride 87 L Carbon Dioxide 26 Anion Gap 11.0 BUN 9 Creatinine 0.5 Estimated GFR (MDRD) 121 Glucose 136 H Calcium 9.0 Total Bilirubin 1.0 AST 21 ALT < 10 L Alkaline Phosphatase 83 Total Protein 7.9 Albumin 3.3 Globulin 4.6 H Albumin/Globulin Ratio 0.7 L Lipase 17 L Urine Color YELLOW Urine Clarity CLEAR Urine pH 6.0 Ur Specific [place] 1.010 Urine Protein NEGATIVE Urine Glucose (UA) NEGATIVE Urine Ketones TRACE Urine Occult Blood NEGATIVE Urine Nitrite NEGATIVE Urine Bilirubin NEGATIVE Urine Urobilinogen 0.2 (NORMAL) Ur Leukocyte Esterase SMALL H Urine RBC 0-5 Urine WBC 6-10 H Ur Squamous Epith Cells FEW Squamous Amorphous Sediment Few Urine Bacteria None Seen Ur Microscopic Review INDICATED Urine Culture Comments INDICATED - Rads (name of study) Head CT Radiology: Prelim report reviewed, EMP read contemporaneously, See rad report (1 ) No acute intracranial CT abnormality. No evidence of hemorrhage or mass effect. 2) There is a bilateral encephalomalacia are relatively stable. 3) Partially imaged soft tissue mass within the left nasopharynx and left economics department chair regions. 4) There is left mastoiditis. There is scattered ethmoid and frontal sinus opacification.) 2-view CXR Radiology: Prelim report reviewed, EMP read contemporaneously, See rad report ( No acute intrathoracic plain film abnormality.) PD MEDICAL DECISION MAKING - ED course Complexity details: reviewed old records, reviewed results, re-evaluated patient , considered differential, d/w patient, d/w family, d/w weight loss sales consultant ED course: The patient's presentation is significant for left mastoiditis seen on CT scan of the head. She presents with increasing headache with persistent vomiting, and with hyponatremia with a sodium of 124. She is also hypertensive in the 220s over 120s. Treatment in the emergency department included administration of normal saline IV, Dilaudid 0.5 mg IV, and Zofran 4 mg IV. This temporarily relieved her nausea and improved her headache. When her symptoms recurred she was given an additional 0.5 mg Dilaudid IV, and Phenergan 12.5 mg IV. Her hypertension was treated with Lopressor 5 mg IV, metoprolol 50 mg orally, and lisinopril 5 mg orally. She had not been able to keep down her daily anti- hypertensive medication because of nausea and vomiting. I discussed her condition with Dr. Castellanos at [facility]. He agrees that she should be transferred to [facility] where she can be evaluated by ENT specialist. I also discussed her condition with Dr. Roxana Hollingsworth based on Dr. Castellanos's referral to her. I then discussed her condition with Dr. Smith, Hospitalist at [facility], who accepted her in transfer. The patient is being transported by S ambulance. Transfer forms were completed. At the end of my shift we are still awaiting a room assignment from the nursing histology supervisor at [facility] before we can initiate the ambulance transport. Departure - Departure Disposition: 02 Transfer Acute Care Hosp Clinical Impression: Mastoiditis of left side, Hyponatremia, HTN (hypertension) with goal to be determined Vomiting Qualifiers: Vomiting type: unspecified Vomiting Intractability: non-intractable Nausea presence: with nausea Qualified Code(s): R11.2 - Nausea with vomiting, unspecified Condition: Stable
[2016-12-01] MEDS ORDERED: levoFLOXacin 250 MG TABLET PO ONE (16:33)
[2016-12-01] MEDS: levoFLOXacin 250 MG TABLET PO STA (16:42)
[2016-12-01] MEDS: IMIPENEM/CILASTATIN 500 MG in SODIUM CHLORIDE 0.9% MINIBAG 100 ML IV STA ×2 (16:42→22:19)
[2016-12-01] MEDS: CIPROFLOX/DEXAMETH OTIC DROPS LEFTEAR SCH (16:42)
[2016-12-01] MEDS ORDERED: METOPROLOL 5 MG/5 ML VIAL IVP ONE (19:00)
[2016-12-01] MEDS ORDERED: METOPROLOL TARTRATE 50 MG TABLET ONE (19:00)
[2016-12-01] MEDS ORDERED: LISINOPRIL 5 MG TABLET ONE ×2 (19:00→22:14)
[2016-12-01] MEDS: METOPROLOL 5 MG/5 ML VIAL IVP STA (19:03)
[2016-12-01] MEDS: LISINOPRIL 5 MG TABLET PO STA ×2 (19:06→22:20)
[2016-12-01] MEDS: METOPROLOL TARTRATE 50 MG TABLET PO STA (19:06)
[2016-12-01] MEDS ORDERED: cloNIDine 0.1 MG TABLET ONE (22:14)
[2016-12-01] MEDS: cloNIDine 0.1 MG TABLET PO STA (22:20)
[2016-12-02] MEDS: IMIPENEM/CILASTATIN 500 MG in SODIUM CHLORIDE 0.9% MINIBAG 100 ML IV STA (04:14)
[2016-12-02] MEDS ORDERED: METOPROLOL TARTRATE 50 MG TABLET ONE (14:10)
[2016-12-02] MEDS ORDERED: cloNIDine 0.1 MG TABLET ONE (14:10)
[2016-12-02] MEDS ORDERED: metFORMIN 500 MG TABLET ONE (14:10)
[2016-12-02] MEDS ORDERED: LISINOPRIL 5 MG TABLET ONE (14:10)
[2016-12-02] MEDS: IMIPENEM/CILASTATIN 500 MG in SODIUM CHLORIDE 0.9% MINIBAG 100 ML IV SCH (14:16)
[2016-12-02] MEDS: cloNIDine 0.1 MG TABLET PO STA (14:17)
[2016-12-02] MEDS: LISINOPRIL 5 MG TABLET PO STA (14:17)
[2016-12-02] MEDS: METOPROLOL SUCCINATE 50 MG TABLET PO STA (14:30)
[2016-12-02] MEDS: metFORMIN 500 MG TABLET PO STA (14:30)
[2016-12-02] MEDS ORDERED: ONDANSETRON 4 MG/2 ML VIAL ONE (15:46)
[2016-12-02] MEDS: SODIUM CHLORIDE 0.9% 1,000 ML IV ONE (15:53)
[2016-12-02] MEDS: ONDANSETRON 4 MG/2 ML VIAL IVP STA (15:53)
[2016-12-02 16:12] VITALS: BP 151/84
== END 2016-12-02 16:30 | disposition short-term general hospital (02) ==
LOC: ED 09:47
DX: H70.92 Unspecified mastoiditis, left ear (principal); E87.1 Hypo-osmolality and hyponatremia; R11.11 Vomiting without nausea; I10 Essential (primary) hypertension; E78.00 Pure hypercholesterolemia, unspecified; Z86.73 Personal history of transient ischemic attack (TIA), and cerebral infarction without residual deficits; E11.9 Type 2 diabetes mellitus without complications; Z79.84 Long term (current) use of oral hypoglycemic drugs; Z87.891 Personal history of nicotine dependence
CPT/HCPCS: 36415; 70450; 71020; 80053; 81001; 81003; 83690; 85025; 87086; 96361; 96365; 96375; 96376; 99285

== ENCOUNTER 2016-12-02 16:18 | Outpatient (CLI) | payer SELFPAY | END 2016-12-02 16:19 | disposition short-term general hospital (02) | DX: R11.10 Vomiting, unspecified (principal) | CPT/HCPCS: A0170; A0425; A0428 ==

== ENCOUNTER 2016-12-20 08:31 | Outpatient (CLI) | payer SELFPAY | END 2016-12-20 23:59 | DX: Z53.9 Procedure and treatment not carried out, unspecified reason (principal) ==

== ENCOUNTER 2016-12-21 08:32 | Outpatient (CLI) | payer SELFPAY | END 2016-12-21 23:59 | DX: E87.1 Hypo-osmolality and hyponatremia (principal); E11.65 Type 2 diabetes mellitus with hyperglycemia; I10 Essential (primary) hypertension ==

== ENCOUNTER 2017-02-05 22:43 | Emergency (ER) | payer SELFPAY ==
[2017-02-05 23:45] LABS: BASOPHILS # (AUTO) 0.1 10^3/uL (0.0-0.1); BASOPHILS % (AUTO) 0.9 %; EOSINOPHILS # (AUTO) 0.2 10^3/uL (0.0-0.7); EOSINOPHILS % (AUTO) 1.7 %; HCT - HEMATOCRIT 28.5 % (37.0-47.0); HGB - HEMOGLOBIN 9.4 g/dL (12.0-16.0); LYMPHOCYTES # (AUTO) 1.4 10^3/uL (1.5-3.5); LYMPHOCYTES % (AUTO) 13.5 %; MEAN CORPUSCULAR HEMOGLOBIN 28.3 pg (27.0-31.0); MEAN CORPUSCULAR HGB CONC 33.1 g/dL (32.0-36.0); MEAN CORPUSCULAR VOLUME 85.5 fL (81.0-99.0); MEAN PLATELET VOLUME 5.8 fL (7.9-10.8); MONOCYTES % (AUTO) 9.5 %; NEUTROPHILS # (AUTO) 7.6 10^3/uL (1.5-6.6); NEUTROPHILS % (AUTO) 74.4 %; RED BLOOD COUNT 3.33 10^6/uL (4.20-5.40); RED CELL DISTRIBUTION WIDTH 16.2 % (12.0-15.0); UNCORRECTED WHITE BLOOD COUNT 10.3 x10^3/uL; WHITE BLOOD COUNT 10.3 x10^3/uL (4.8-10.8)
--- NOTE | 2017-02-05 23:47 | ED Physician Documentation ---
PD HPI GI BLEED - Stated complaint Stated Complaint: BLOODY STOOL,PAIN - Chief complaint Chief Complaint: Abd Pain - History obtained from History obtained from: Patient - History of Present Illness Timing - onset: Today (Just prior to arrival.) Associated symptoms: BRBPR - Additional information Additional information: The patient is a 76-year-old female who is accompanied by her daughter who interprets for her. Today the patient has been complaining of pain in her rectal area. Her daughter then noticed bright red blood dripping into the commode, after the patient had tried to have a bowel movement unsuccessfully. She denies abdominal pain, nausea, or vomiting. She denies dysuria. She has no history of similar symptoms in the past. The patient does have a sedentary lifestyle. Review of Systems Constitutional: denies: Fever Nose: denies: Congestion Throat: denies: Sore throat Cardiac: denies: Chest pain / pressure Respiratory: denies: Dyspnea, Cough GI: reports: Constipation, Bloody / black stool. denies: Abdominal Pain, Nausea , Vomiting : denies: Dysuria Skin: denies: Rash Musculoskeletal: denies: Back pain Neurologic: denies: Headache PD PAST MEDICAL HISTORY - Past Medical History Cardiovascular: Hypertension, High cholesterol Respiratory: None Neuro: CVA Endocrine/Autoimmune: Type 2 diabetes GI: None : None HEENT: None Psych: None Musculoskeletal: None Derm: None - Past Surgical History Past Surgical History: No General: Gastric surgery HEENT: Cataracts - Present Medications Home Medications: Ambulatory Orders Medication Instructions Recorded Confirmed Lisinopril [Zestril] 10 mg PO DAILY 09/08/16 02/05/17 metFORMIN [Glucophage] 500 mg PO BIDWM 09/08/16 02/05/17 Clonidine HCl 0.1 mg PO BID #30 tablet 09/15/16 02/05/17 Metoprolol Succinate [Toprol Xl] 50 mg PO BID 11/04/16 02/05/17 Docusate Sodium 250Mg Capsule 250 mg PO Q4H 11/18/16 02/05/17 [Colace 250Mg Capsule] Aspirin Chewable [St Evan 81 mg PO DAILY 02/05/17 02/05/17 Aspirin] - Allergies Allergies/Adverse Reactions: Allergies Allergy/AdvReac Type Severity Reaction Status Date / Time No Known Drug Allergies Allergy Verified 11/18/16 16:30 - Living Situation Living Situation: reports: With family Living Arrangement: reports: At home - Social History Does the pt smoke?: No Smoking Status: Former smoker Does the pt drink ETOH?: No Does the pt have substance abuse?: No - Immunizations Immunizations are current?: Yes - POLST Patient has POLST: No PD ED PE NORMAL - Vitals Vital signs reviewed: Yes (hypertensive) - General General: Alert and oriented X 3, Well developed/nourished, Other (overweight) - HEENT HEENT: Atraumatic, Pharynx benign - Neck Neck: No adenopathy, No JVD - Cardiac Cardiac: RRR, No murmur - Respiratory Respiratory: No respiratory distress, Clear bilaterally - Abdomen Abdomen: Normal bowel sounds, Soft, Non tender - Rectal Rectal: Other (Rectal exam reveals a large fecal impaction. There is no hemorrhoid detected.) - Back Back: No CVA TTP - Derm Derm: No rash - Extremities Extremities: No edema, No calf tenderness / cord - Neuro Neuro: Alert and oriented X 3, No motor deficit Results - Vitals Vitals: Oxygen O2 Source [With Activity] Room air O2 Source Room air - Labs Labs: Laboratory Tests 02/05/17 02/05/17 02/05/17 23:24 23:24 23:24 WBC 10.3 RBC 3.33 L Hgb 9.4 L Hct 28.5 L MCV 85.5 MCH 28.3 MCHC 33.1 RDW 16.2 H Plt Count 562 H MPV 5.8 L Neut # 7.6 H Lymph # 1.4 L [place] # 1.0 Eos # 0.2 Baso # 0.1 Absolute Nucleated RBC 0.00 Nucleated RBCs 0.0 PT 13.1 H INR 1.2 APTT 26.8 Sodium 131 L Potassium 3.4 L Chloride 97 L Carbon Dioxide 27 Anion Gap 7.0 BUN 13 Creatinine 0.6 Estimated GFR (MDRD) 97 Glucose 145 H Calcium 9.0 Total Bilirubin 0.8 AST 18 ALT 10 Alkaline Phosphatase 79 Total Protein 6.6 L Albumin 2.7 L Globulin 3.9 Albumin/Globulin Ratio 0.7 L Lipase 24 Urine Color Urine Clarity Urine pH Ur Specific [place] Urine Protein Urine Glucose (UA) Urine Ketones Urine Occult Blood Urine Nitrite Urine Bilirubin Urine Urobilinogen Ur Leukocyte Esterase Ur Microscopic Review Urine Culture Comments Blood Type Antibody Screen 02/05/17 02/06/17 23:24 00:55 WBC RBC Hgb Hct MCV MCH MCHC RDW Plt Count MPV Neut # Lymph # [place] # Eos # Baso # Absolute Nucleated RBC Nucleated RBCs PT INR APTT Sodium Potassium Chloride Carbon Dioxide Anion Gap BUN Creatinine Estimated GFR (MDRD) Glucose Calcium Total Bilirubin AST ALT Alkaline Phosphatase Total Protein Albumin Globulin Albumin/Globulin Ratio Lipase Urine Color YELLOW Urine Clarity CLEAR Urine pH 6.0 Ur Specific [place] 1.010 Urine Protein NEGATIVE Urine Glucose (UA) NEGATIVE Urine Ketones NEGATIVE Urine Occult Blood NEGATIVE Urine Nitrite NEGATIVE Urine Bilirubin NEGATIVE Urine Urobilinogen 0.2 (NORMAL) Ur Leukocyte Esterase NEGATIVE Ur Microscopic Review NOT INDICATED Urine Culture Comments NOT INDICATED Blood Type A POSITIVE Antibody Screen NEGATIVE PD MEDICAL DECISION MAKING - ED course Complexity details: reviewed old records, reviewed results, re-evaluated patient , considered differential, d/w patient, d/w family ED course: The patient's presentation is significant for fecal impaction with associated rectal pain and likely internal hemorrhoidal bleeding. Her CBC reveals anemia with a hemoglobin of 9.4 and hematocrit 28.5, which is similar to previous lab results going back several months. Chemistry panel reveals mild hyponatremia with a sodium of 131, which is also similar to previous levels. Catheterized urine specimen is negative. Treatment in the emergency department included digital fecal disimpaction, which I performed at the time of the rectal exam. Although the procedure was uncomfortable for the patient, she felt subjectively improved by the time of discharge. I discussed with her and her daughter the diagnosis, symptomatic treatment and outpatient follow-up, as well as potentially worrisome signs or symptoms that should prompt reevaluation in the emergency department. Departure - Departure Disposition: 01 Home, Self Care Clinical Impression: Fecal impaction Anemia Qualifiers: Anemia type: unspecified type Qualified Code(s): D64.9 - Anemia, unspecified Condition: Stable Instructions: ED Impaction Fecal Treated Follow-Up: Can Atkinson MD [Primary Care Provider] - Comments: Drink plenty of fluids. You can use udder cream for sore areas on your bottom. Follow-up with your primary physician within 1-2 weeks. Call to schedule appointment. Return to the emergency department if you develop increasing rectal pain, persistent rectal bleeding, or otherwise worsening symptoms. Discharge Date/Time: 02/06/17 01:47
[2017-02-05 23:54] LABS: INR 1.2 (0.8-1.2); PT - PROTHROMBIN TIME 13.1 secs (9.9-12.6)
[2017-02-06] LABS: ALBUMIN/GLOBULIN RATIO 0.7 (1.0-2.2); BILIRUBIN,TOTAL 0.8 mg/dL (0.2-1.0); CREATININE 0.6 mg/dL (0.4-1.0); POTASSIUM 3.4 mmol/L (3.5-5.0); TOTAL PROTEIN 6.6 g/dL (6.7-8.2)
[2017-02-06 00:02] LABS: PARTIAL THROMBOPLASTIN TIME 26.8 secs (24.9-33.3)
[2017-02-06 00:48] VITALS: BP 175/102
[2017-02-06 01:04] LABS: BILIRUBIN,URINE NEGATIVE (NEGATIVE)
[2017-02-06 01:08] LABS: UA CHARGE (STRIP ONLY) YES; UR CULTURE IF IND NOT INDICATED
== END 2017-02-06 01:47 | disposition home or self-care (01) ==
LOC: ED 22:43
DX: K56.41 Fecal impaction (principal); D64.9 Anemia, unspecified; Z87.891 Personal history of nicotine dependence
CPT/HCPCS: 36415; 51701; 80053; 81001; 81003; 83690; 85025; 85610; 85730; 86850; 86900; 86901; 87086; 99283; 99284

== ENCOUNTER 2017-02-11 12:57 | Emergency (ER) | payer SELFPAY ==
--- NOTE | 2017-02-11 13:29 | ED Physician Documentation ---
History of Present Illness - Stated complaint Stated Complaint: FEMALE - Chief complaint Chief Complaint: General - History obtained from History obtained from: Patient, Family - History of Present Illness Timing: Other (Seen 1 week ago for a fecal impaction, was disimpacted. Really has not had significant bowel movements since and presents with continued rectal pain and rawness.) Review of Systems Constitutional: denies: Fever, Chills GI: denies: Abdominal Pain, Vomiting, Bloody / black stool Neurologic: denies: Numbness, Syncope, Headache PD PAST MEDICAL HISTORY - Past Medical History Cardiovascular: Hypertension, High cholesterol Respiratory: None Neuro: CVA Endocrine/Autoimmune: Type 2 diabetes GI: None : None HEENT: None Psych: None Musculoskeletal: None Derm: None - Past Surgical History Past Surgical History: No General: Gastric surgery HEENT: Cataracts - Present Medications Home Medications: Ambulatory Orders Medication Instructions Recorded Confirmed Lisinopril [Zestril] 10 mg PO DAILY 09/08/16 02/11/17 metFORMIN [Glucophage] 500 mg PO BIDWM 09/08/16 02/11/17 Clonidine HCl 0.1 mg PO BID #30 tablet 09/15/16 02/11/17 Metoprolol Succinate [Toprol Xl] 50 mg PO BID 11/04/16 02/11/17 Docusate Sodium 250Mg Capsule 250 mg PO Q4H 11/18/16 02/11/17 [Colace 250Mg Capsule] Aspirin Chewable [St Evan 81 mg PO DAILY 02/05/17 02/11/17 Aspirin] Polyethylene Glycol 3350 [Miralax] 17 gm PO DAILY PRN #1 bottle 02/11/17 - Allergies Allergies/Adverse Reactions: Allergies Allergy/AdvReac Type Severity Reaction Status Date / Time No Known Drug Allergies Allergy Verified 11/18/16 16:30 - Social History Does the pt smoke?: No Smoking Status: Former smoker Does the pt drink ETOH?: No Does the pt have substance abuse?: No - Immunizations Immunizations are current?: Yes - POLST Patient has POLST: No PD ED PE NORMAL - Vitals Vital signs reviewed: Yes - General General: Alert and oriented X 3, No acute distress - HEENT HEENT: Other (Mod L facial droop) - Abdomen Abdomen: Soft, Non tender - Rectal Rectal: Other (With Wade Colunga RN, firm lrg fecal impaction with some disimpaction done during initial exam, then fleets enema.) - Neuro Neuro: Alert and oriented X 3, Normal speech, Other (No pronator drift, normal gait) Results - Vitals Vitals: Vital Signs - 24 hr 02/11/17 02/11/17 02/11/17 13:02 15:11 17:47 Temperature 36.4 C L Heart Rate 103 H 102 H 96 Respiratory 16 16 16 Rate Blood Pressure 161/91 H 205/101 H 188/95 H O2 Saturation 96 97 99 Oxygen O2 Source [With Activity] Room air O2 Source Room air - Labs Labs: Laboratory Tests 02/11/17 02/11/17 14:45 14:45 WBC 11.2 H RBC 3.29 L Hgb 9.3 L Hct 27.4 L MCV 83.1 MCH 28.2 MCHC 33.9 RDW 15.6 H Plt Count 643 H MPV 5.8 L Neut # 9.3 H Lymph # 1.0 L [place] # 0.7 Eos # 0.1 Baso # 0.0 Absolute Nucleated RBC 0.00 Nucleated RBCs 0.0 Sodium 131 L Potassium 3.0 L Chloride 95 L Carbon Dioxide 28 Anion Gap 8.0 BUN 9 Creatinine 0.5 Estimated GFR (MDRD) 120 Glucose 165 H Calcium 8.8 Total Bilirubin 0.9 AST 18 ALT 10 Alkaline Phosphatase 81 Total Protein 6.9 Albumin 2.7 L Globulin 4.2 Albumin/Globulin Ratio 0.6 L Lipase 29 - Rads (name of study) Brain MRI Radiology: Prelim report reviewed (Probably subacute stroke, see reading), See rad report PD MEDICAL DECISION MAKING - ED course ED course: 76-year-old woman presents with an acute fecal impaction, partially disimpacted during examination then with serial enema with stepwise improvement. Noted by the daughter at 2:10 PM a facial droop on the left since this morning. She had a stroke 5 years ago without significant residual deficits. She does have a facial droop on exam, she has no pronator drift, has a normal gait, symmetric sensation. CT scanner is down so opted for MRI to evaluate. This did show probably a subacute stroke, nothing acute, family updated. Departure - Departure Disposition: 01 Home, Self Care Clinical Impression: Fecal impaction, Hypokalemia Cerebrovascular accident (CVA) Qualifiers: CVA mechanism: unspecified Qualified Code(s): I63.9 - Cerebral infarction, unspecified Condition: Good Record reviewed to determine appropriate education?: Yes Instructions: ED Impaction Fecal Treated Prescriptions: Polyethylene Glycol 3350 [Miralax] 17 gm PO DAILY PRN #1 bottle PRN Reason: Constipation Comments: Continue current medications. Follow-up with your doctor at the end of this week for reevaluation and further treatment, potentially further blood pressure control given recent but not acute stroke.
[2017-02-11] MEDS ORDERED: BISACODYL 5 MG TABLET PO STA (14:01)
[2017-02-11] MEDS ORDERED: MAGNESIUM CITRATE 296 ML BOTTLE PO STA (14:01)
[2017-02-11] MEDS ORDERED: BISACODYL 5 MG TABLET PO ONE (14:01)
[2017-02-11] MEDS ORDERED: MAGNESIUM CITRATE 296 ML BOTTLE ONE (14:02)
[2017-02-11 15:04] LABS: BASOPHILS % (AUTO) 0.3 %; EOSINOPHILS # (AUTO) 0.1 10^3/uL (0.0-0.7); EOSINOPHILS % (AUTO) 0.9 %; HCT - HEMATOCRIT 27.4 % (37.0-47.0); HGB - HEMOGLOBIN 9.3 g/dL (12.0-16.0); LYMPHOCYTES % (AUTO) 9.3 %; MEAN CORPUSCULAR HEMOGLOBIN 28.2 pg (27.0-31.0); MEAN CORPUSCULAR HGB CONC 33.9 g/dL (32.0-36.0); MEAN CORPUSCULAR VOLUME 83.1 fL (81.0-99.0); MEAN PLATELET VOLUME 5.8 fL (7.9-10.8); MONOCYTES # (AUTO) 0.7 10^3/uL (0.0-1.0); NEUTROPHILS # (AUTO) 9.3 10^3/uL (1.5-6.6); NEUTROPHILS % (AUTO) 83.5 %; RED BLOOD COUNT 3.29 10^6/uL (4.20-5.40); RED CELL DISTRIBUTION WIDTH 15.6 % (12.0-15.0); UNCORRECTED WHITE BLOOD COUNT 11.2 x10^3/uL; WHITE BLOOD COUNT 11.2 x10^3/uL (4.8-10.8)
[2017-02-11 15:12] LABS: ALBUMIN/GLOBULIN RATIO 0.6 (1.0-2.2); BILIRUBIN,TOTAL 0.9 mg/dL (0.2-1.0); CALCIUM 8.8 mg/dL (8.5-10.3); CREATININE 0.5 mg/dL (0.4-1.0); TOTAL PROTEIN 6.9 g/dL (6.7-8.2)
[2017-02-11] MEDS ORDERED: POTASSIUM BICARB 25 MEQ TABLET PO STA (15:21)
[2017-02-11] MEDS ORDERED: POTASSIUM BICARB 25 MEQ TABLET PO ONE (15:24)
--- NOTE | 2017-02-11 18:27 | MRI Preliminary Report ---
Exam: MRI Brain W/O IMPRESSION: 1. No convincing evidence for acute infarct. Large area of encephalomalacia in the posterolateral rig ht temporal occipital lobe developed since prior head CT 12/01/2016 compatible with recent interval s ubacute right MCA distribution infarct. No evidence to suggest hemorrhagic conversion. Clinical corre lation and comparison with imaging at the time of infarct suggested. 2. Stable multifocal encephalomalacia in the superior right parietal lobe, right pericallosal cingula te/frontal lobe, right cerebellum, left wetzel radiata compared to prior MRI 11/04/2016. Stable focal encephalomalacia in the left occipital lobe. 3. Fluid signal intensity within bilateral mastoid air cells, similar to 11/04/2016, with appearance of the left ethmoid air cells raising suspicion for interval left mastoidectomy, with mastoidectomy c avity filled with fluid. Clinical correlation suggested. CT of the head would be confirmatory. 4. Progressive opacification of the bilateral sphenoid sinus with proteinaceous, inspissated heteroge neous intensity secretions. Chronic mucosal thickening in bilateral ethmoid air cells and frontal sin us. 5. Previously seen infiltrative masslike lesion in the left nasopharynx and region of the left eustac hian tube no longer demonstrated with symmetric appearance of the nasopharyngeal mucosa. There is per sistent marrow hypointensity within the inferior clivus, with nonspecific lobulated T2 hyperintensity within the central nasopharyngeal soft tissue anterior to the inferior clivus. If the nasopharyngeal region and this finding is to be further evaluated, consider MRI evaluation of the soft tissue neck/ skull base without and with contrast. Findings communicated to Dr. Leroy at 1747 hrs. 02/11/2017 [facility] The above findings were discussed with provider Rad by Dr. Iker Ghotra at 18:26 hrs on 02/11/17. SITE ID: [id number]
--- NOTE | 2017-02-11 18:30 | MRI Report ---
EXAM: MRI BRAIN WITHOUT CONTRAST EXAM DATE: 02/11/2017 04:38 PM. CLINICAL HISTORY: Left-sided facial droop since this morning. Patient had a recent left mastoidectomy , presenting with nasopharyngeal mass and large infiltrative lesion, with recent prior nasopharyngeal biopsy and left tympanomastoidectomy COMPARISON: MRI brain 11/04/2016, head CT 12/01/2016. MRI brain and IAC 12/05/2016 from [facility] TECHNIQUE: Multiplanar, multisequence T1-weighted and fluid-sensitive MR sequences of the brain were performed. Sequences optimized for routine evaluation. Other: None. IV Contrast: None. FINDINGS: Diffusion weighted sequence demonstrates no evidence for acute infarct. There is a large area of ence phalomalacia in the posterior lateral right temporal occipital lobe which has developed since prior h ead CT 12/01/2016, compatible with recent subacute right MCA distribution infarct. There is no eviden ce to suggest hemorrhagic conversion. Encephalomalacia and chronic infarct in the right superior parietal lobe, pericallosal right frontal lobe, right cerebellum and left wetzel radiata appear unchanged compared to prior MRI 11/04/2016. Sta ble subtle T2 hyperintensity and Wallerian degeneration in the left cerebral peduncle. There is no midline shift, mass effect or abnormal extra-axial collections. Size and configuration of the ventricles appear normal without evidence for hydrocephalus. Major intracranial flow voids appear preserved. There is moderate diffuse cerebral volume loss. Crani ocervical junction and visualized upper cervical cord appear normal. Orbits, optic nerve sheath compl ex, cavernous sinus and pituitary fossa appear grossly unremarkable, accounting for motion artifacts. Fluid signal within bilateral mastoid air cells. Appearance of the left mastoid air cells raises susp icion of interval up left mastoidectomy, which could be correlated clinically. There is no diffusion restriction to suggest cholesteatoma or abscess. Complete opacification of the sphenoid sinus with inspissated, heterogeneous T2 hyperintensity secret ion. Scattered mucosal thickening in bilateral ethmoid air cells, bilateral frontal sinus and bilater al maxillary sinus. Previously seen infiltrative masslike lesion in areas of hypoenhancement in the left and nasopharynx no longer demonstrated. Appearance of the nasopharyngeal mucosa is symmetric compared to 12/05/2016. There is a bilobed T2 hyperintense focus within the central nasopharynx (image 3 series 601) measurin g 1.8 x 0.8 cm, deep to the longus coli muscle, of uncertain etiology, not present on prior MRI 12/05, anterior to the inferior clivus. These may represent mucous retention cyst. If the nasopharyng eal region and this finding is to be further evaluated, consider evaluation of the soft tissue neck/s kull base without and with contrast. IMPRESSION: 1. No convincing evidence for acute infarct. Large area of encephalomalacia in the posterolateral rig ht temporal occipital lobe developed since prior head CT 12/01/2016 compatible with recent interval s ubacute right MCA distribution infarct. No evidence to suggest hemorrhagic conversion. Clinical corre lation and comparison with imaging at the time of infarct suggested. 2. Stable multifocal encephalomalacia in the superior right parietal lobe, right pericallosal cingula te/frontal lobe, right cerebellum, left wetzel radiata compared to prior MRI 11/04/2016. Stable focal encephalomalacia in the left occipital lobe. 3. Fluid signal intensity within bilateral mastoid air cells, similar to 11/04/2016, with appearance of the left ethmoid air cells raising suspicion for interval left mastoidectomy, with mastoidectomy c avity filled with fluid. Clinical correlation suggested. CT of the head would be confirmatory. 4. Progressive opacification of the bilateral sphenoid sinus with proteinaceous, inspissated heteroge neous intensity secretions. Chronic mucosal thickening in bilateral ethmoid air cells and frontal sin us. 5. Previously seen infiltrative masslike lesion in the left nasopharynx and region of the left eustac hian tube no longer demonstrated with symmetric appearance of the nasopharyngeal mucosa. There is per sistent marrow hypointensity within the inferior clivus, with nonspecific lobulated T2 hyperintensity within the central nasopharyngeal soft tissue anterior to the inferior clivus. If the nasopharyngeal region and this finding is to be further evaluated, consider MRI evaluation of the soft tissue neck/ skull base without and with contrast. Findings communicated to Dr. Leroy at 1747 hrs. 02/11/2017 [facility] The above findings were discussed with provider Rad by Dr. Iker Ghotra at 18:26 hrs on 02/11/17. Referring Provider Line: [phone] SITE ID: [id number]
[2017-02-11 18:41] VITALS: BP 172/79
== END 2017-02-11 18:41 | disposition home or self-care (01) ==
LOC: ED 12:57
DX: K56.41 Fecal impaction (principal); E87.6 Hypokalemia; R29.810 Facial weakness; I63.9 Cerebral infarction, unspecified; I10 Essential (primary) hypertension; E11.9 Type 2 diabetes mellitus without complications; Z79.84 Long term (current) use of oral hypoglycemic drugs; Z86.73 Personal history of transient ischemic attack (TIA), and cerebral infarction without residual deficits; Z87.891 Personal history of nicotine dependence
CPT/HCPCS: 36415; 70551; 80053; 83690; 85025; 99283; 99284; A9270

== ENCOUNTER 2017-04-01 11:23 | Outpatient (CLI) | payer SELFPAY | END 2017-04-01 11:24 | disposition critical access hospital (66) | LOC: EMS 11:23 | PROVIDERS: ATTEND Surgery | DX: R41.82 Altered mental status, unspecified (principal) | CPT/HCPCS: A0425; A0427 ==

== ENCOUNTER 2017-04-01 11:43 | Emergency (ER) | payer SELFPAY ==
[2017-04-01 11:59] LABS: BASOPHILS % (AUTO) 0.2 %; EOSINOPHILS % (AUTO) 0.3 %; HCT - HEMATOCRIT 32.2 % (37.0-47.0); HGB - HEMOGLOBIN 10.5 g/dL (12.0-16.0); LYMPHOCYTES # (AUTO) 0.9 10^3/uL (1.5-3.5); LYMPHOCYTES % (AUTO) 5.6 %; MEAN CORPUSCULAR HEMOGLOBIN 27.7 pg (27.0-31.0); MEAN CORPUSCULAR HGB CONC 32.7 g/dL (32.0-36.0); MEAN CORPUSCULAR VOLUME 84.5 fL (81.0-99.0); MEAN PLATELET VOLUME 6.7 fL (7.9-10.8); MONOCYTES # (AUTO) 0.6 10^3/uL (0.0-1.0); MONOCYTES % (AUTO) 3.6 %; NEUTROPHILS % (AUTO) 90.3 %; RED BLOOD COUNT 3.81 10^6/uL (4.20-5.40); RED CELL DISTRIBUTION WIDTH 15.6 % (12.0-15.0); UNCORRECTED WHITE BLOOD COUNT 15.5 x10^3/uL; WHITE BLOOD COUNT 15.5 x10^3/uL (4.8-10.8)
--- NOTE | 2017-04-01 12:03 | ED Physician Documentation ---
PD HPI FOCAL NEURO - Stated complaint Stated Complaint: RIGHT SIDE WEAKNESS - Chief complaint Chief Complaint: Neuro - History obtained from History obtained from: Patient, Family, EMS - History of Present Illness Timing - onset: How many hours ago (1.5) Timing - duration: Hours (1.5) Timing - details: Abrupt onset Severity of deficit: Severe Weakness: Arm, Leg, Right Associated symptoms: Other (aphasia). No: Headache, Nausea / vomiting, Seizure , Syncope Contributing factors: negative: Anticoagulated, Atrial fibrillation, Prosthetic heart valve Baseline status: positive: Walker, Mildly confused Similar symptoms before: Diagnosis (stroke 5 years ago) Recently seen: Not recently seen Review of Systems Unable to obtain: Other (global aphasia) Constitutional: denies: Fever GI: denies: Vomiting Neurologic: denies: Head injury PD PAST MEDICAL HISTORY - Past Medical History Past Medical History: Yes Cardiovascular: Hypertension, High cholesterol Respiratory: None Neuro: CVA Endocrine/Autoimmune: Type 2 diabetes GI: None : None HEENT: None Psych: None Musculoskeletal: None Derm: None - Past Surgical History Past Surgical History: No General: Gastric surgery HEENT: Cataracts - Present Medications Home Medications: Ambulatory Orders Medication Instructions Recorded Confirmed Lisinopril [Zestril] 10 mg PO DAILY 09/08/16 02/11/17 metFORMIN [Glucophage] 500 mg PO BIDWM 09/08/16 02/11/17 Clonidine HCl 0.1 mg PO BID #30 tablet 09/15/16 02/11/17 Metoprolol Succinate [Toprol Xl] 50 mg PO BID 11/04/16 02/11/17 Docusate Sodium 250Mg Capsule 250 mg PO Q4H 11/18/16 02/11/17 [Colace 250Mg Capsule] Aspirin Chewable [St Evan 81 mg PO DAILY 02/05/17 02/11/17 Aspirin] Polyethylene Glycol 3350 [Miralax] 17 gm PO DAILY PRN #1 bottle 02/11/17 - Allergies Allergies/Adverse Reactions: Allergies Allergy/AdvReac Type Severity Reaction Status Date / Time No Known Drug Allergies Allergy Verified 11/18/16 16:30 - Social History Does the pt smoke?: No Smoking Status: Former smoker Does the pt drink ETOH?: No Does the pt have substance abuse?: No - Immunizations Immunizations are current?: Yes - POLST Patient has POLST: No PD ED PE NORMAL - Vitals Vital signs reviewed: Yes - General General: No acute distress, Other (thin elderly female) - HEENT HEENT: PERRL, EOMI, Other (R facial paralysis) - Neck Neck: Supple, no meningeal sign, No bony TTP - Cardiac Cardiac: RRR - Respiratory Respiratory: No respiratory distress, Clear bilaterally - Abdomen Abdomen: Soft, Non tender - Back Back: No spinal TTP - Derm Derm: Warm and dry, No rash - Neuro Neuro: Other (alert) - Psych Psych: Normal mood, Normal affect NIHSS - Time Time: 11:50 - Level of Consciousness Level of consciousness: (1) Not alert, but arousable by minor stimulation to obey, or answer LOC Questions: (2) Answers neither correct LOC Commands: (2)Performs none - Gaze Best Gaze: (0) Normal - Visual Visual: (0) No loss - Facial Palsy Facial Palsy: (1) Minor paralysis - Motor Arms (both separate) Motor Arm (right): (4) No movement Motor Arm (left): (1) Drift - Motor Legs (both separate) Motor Leg (right): (4) No movement Motor Leg (left): (1) Drift - Limb Ataxia Limb Ataxia: (0) Absent - Sensory Sensory: (0) Normal - Best Language Best Language: (3) Mute, global aphasia - Dysarthria Dysarthria: (0) Normal - Extinction and Inattention (formally neg Extinction and inattention: (0) No abnormality - Total Score/Results Total Score/Result: 19 Results - Vitals Vitals: Vital Signs - 24 hr 04/01/17 04/01/17 04/01/17 11:47 12:36 13:33 Temperature 36.2 C L Heart Rate 93 82 80 Respiratory 18 17 24 Rate Blood Pressure 113/72 144/75 H 174/84 H O2 Saturation 96 97 99 04/01/17 04/01/17 13:36 13:46 Temperature Heart Rate 80 81 Respiratory 23 28 H Rate Blood Pressure 179/88 H 162/84 H O2 Saturation 100 99 Oxygen O2 Source [] Room air O2 Source Room air - EKG (time done) 1152 Rate: Rate (enter#) (90) Rhythm: NSR [place]: Normal Intervals: Normal [place] QRS: Normal Ischemia: Non specific changes Computer interpretation: Agree with computer - Labs Labs: Laboratory Tests 04/01/17 04/01/17 04/01/17 11:50 11:50 11:50 WBC 15.5 H RBC 3.81 L Hgb 10.5 L Hct 32.2 L MCV 84.5 MCH 27.7 MCHC 32.7 RDW 15.6 H Plt Count 538 H MPV 6.7 L Neut # 14.0 H Lymph # 0.9 L [place] # 0.6 Eos # 0.0 Baso # 0.0 Absolute Nucleated RBC 0.00 Nucleated RBCs 0.0 PT 14.0 H INR 1.2 APTT 26.2 Sodium 136 Potassium 3.2 L Chloride 91 L Carbon Dioxide 36 H Anion Gap 9.0 BUN 38 H Creatinine 0.8 Estimated GFR (MDRD) 70 L Glucose 212 H Calcium 9.5 Total Bilirubin 0.7 AST 24 ALT 11 Alkaline Phosphatase 85 Total Protein 8.2 Albumin 2.7 L Globulin 5.5 H Albumin/Globulin Ratio 0.5 L Lipase 21 L - Rads (name of study) head CT Radiology: Prelim report reviewed, EMP read contemporaneously, See rad report ( No evidence of intracranial hemorrhage or large recent infarct. A 4.3 x 2 cm region of right parietal encephalomalacia has developed since prior head CT. Old infarcts noted above. Generalized age-related cortical atrophic changes. Sinus disease noted above. ) CT angio head Radiology: Prelim report reviewed, EMP read contemporaneously CT angio neck Radiology: Prelim report reviewed, EMP read contemporaneously PD MEDICAL DECISION MAKING - ED course Complexity details: reviewed results, re-evaluated patient, considered differential, d/w patient, d/w family, d/w contaminated land consultant (Dr. Mireles) ED course: Patient is a 76-year-old female who presents to the emergency department with abrupt onset of global aphasia and dense right-sided hemiparesis. Her stroke symptoms 4-5 years ago reportedly were on the left side. I consulted tele- neurology, Dr. Mireles at 1215. He reviewed the images evaluated the patient and the decision to utilize TPA was made at 1240. The patient will be sent to [facility] for further evaluation. Daughter would like her to be DNR. The decision to utilize TPA was made with the daughter as the surrogate decision maker. Dr. Mireles also asked that CT angios of the head and neck be performed, he will be able to follow-up the images and the results. Patient transferred to [facility] for further care. Prior to transfer, she is improving, is able to move her hands and feet as well as stick out her tongue. This document was made in part using voice recognition software. While efforts are made to proofread this document, sound alike and grammatical errors may occur. Departure - Departure Disposition: 02 Transfer Acute Care Hosp Clinical Impression: Cerebrovascular accident (CVA) Qualifiers: CVA mechanism: thrombosis Precerebral and cerebral artery: unspecified cerebral artery Qualified Code(s): I63.30 - Cerebral infarction due to thrombosis of unspecified cerebral artery Condition: Stable Forms: Activity restrictions Discharge Date/Time: 04/01/17 14:17
[2017-04-01 12:07] LABS: INR 1.2 (0.8-1.2)
[2017-04-01 12:13] LABS: ALBUMIN/GLOBULIN RATIO 0.5 (1.0-2.2); BILIRUBIN,TOTAL 0.7 mg/dL (0.2-1.0); CALCIUM 9.5 mg/dL (8.5-10.3); CREATININE 0.8 mg/dL (0.4-1.0); POTASSIUM 3.2 mmol/L (3.5-5.0); TOTAL PROTEIN 8.2 g/dL (6.7-8.2)
[2017-04-01 12:14] LABS: PARTIAL THROMBOPLASTIN TIME 26.2 secs (24.9-33.3)
[2017-04-01] MEDS ORDERED: ALTEPLASE IV STA (12:22)
[2017-04-01] MEDS ORDERED: WATER FOR INJECTION STERILE IV STA (12:22)
--- NOTE | 2017-04-01 12:35 | CT Preliminary Report ---
Exam: CT Head W/O Stroke Protocol IMPRESSION: 1. No evidence of intracranial hemorrhage or large recent infarct. 2. A 4.3 x 2 cm region of right parietal encephalomalacia has developed since prior head CT. 3. Old infarcts noted above. 4. Generalized age-related cortical atrophic changes. 5. Sinus disease noted above. CRITICAL TEST: The findings were discussed with Dr. Hart on date of exam at 12:28 PM. [facility] SITE ID: [id number]
--- NOTE | 2017-04-01 12:38 | CT Report ---
NOTHING REVISED: THIS REPORT WAS ORIGINALLY SIGNED ON 03/28/2017 @ 1640. EXAM: CT HEAD EXAM DATE: 04/01/2017 12:14 PM. CLINICAL HISTORY: ALOC, R sided weakness. COMPARISON: Head CT 12/01/2016. TECHNIQUE: Multiaxial CT images were obtained from the foramen magnum to the vertex. IV contrast: None. Reformats: Coronal. In accordance with CT protocol optimization, one or more of the following dose reduction techniques were utilized for this exam: automated exposure control, adjustment of mA and/or KV based on patient size, or use of iterative reconstructive technique. FINDINGS: Parenchyma: No intraparenchymal hemorrhage. A 4.3 x 2 cm region of right parietal encephalomalacia has developed since prior head CT. Stable hypodensities in right frontal lobe, left wetzel radiata. Stable right cerebellar encephalomalacia from old infarct. Extraaxial Spaces: Normal for age. No subdural or epidural collections identified. Ventricles: The ventricles and cortical sulci are enlarged, consistent with age- related tissue loss. Sinuses: Right mastoid and middle ear opacification. Interval left partial mastoidectomy suspected. Residual left mastoid air cells are opacified. Prominent ethmoid opacification. Bones: No evidence of fracture or calvarial defect. Other: Diffuse chronic microangiopathic white matter changes are evident. Atherosclerotic calcifications. IMPRESSION: 1. No evidence of intracranial hemorrhage or large recent infarct. 2. A 4.3 x 2 cm region of right parietal encephalomalacia has developed since prior head CT. 3. Old infarcts noted above. 4. Generalized age-related cortical atrophic changes. 5. Sinus disease noted above. CRITICAL TEST: The findings were discussed with Dr. Hart on date of exam at 12 :28 PM. [facility] Referring Provider Line: [phone] SITE ID: [id number]
[2017-04-01] MEDS ORDERED: ALTEPLASE 100 MG VIAL IVP ONE (13:00)
[2017-04-01 13:49] VITALS: BP 162/84
[2017-04-01] MEDS ORDERED: IOPAMIDOL-300 100 ML VIAL IVP ONE (14:20)
--- NOTE | 2017-04-01 20:07 | CT Preliminary Report ---
Exam: CT Neck Angio Impression: CT head: Interval, in comparison with 11/04/2016, development of a new area of encephalomalacia in the right p arieto-occipital cortex, concordant with interval infarct. Again demonstrated is old right cerebellar infarct, and prior right sided posterior frontal infarct. Postcontrast head CT: No abnormal parenchymal enhancement. No mass lesions. Head CTA: Interval worsening of high-grade proximal stenosis of a prominent left frontopolar branch, now near o ccluded, as detailed, concordant with clinical symptoms. There is qualitatively diminished flow in th e left frontal MCA vessels. 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 At least 40% stenosis of the right paraclinoid segment, worsened. 30-50% stenosis of the Left vertebral artery left lateral medullary cistern, worsened since the prior study. 30-50% stenosis of the right internal carotid artery skull base, not present on the prior study, clin ical correlation with possibility of skull base radiation, this may be postradiation effect. There is also soft tissue density in this area, more conspicuous than on the prior study, this may reflect tu mor involvement. Postcontrast head CT: No abnormal parenchymal enhancement. No parenchymal masses. Neck CTA: No evident extracranial arterial stenosis or dissection, except as described above. Multilevel cervical spondylosis, as detailed. Findings were discussed directly with the hospitalist at [facility], the patient had been transferred, a t approximately 7:50 PM, 04/01/2017. The above critical findings were discussed with [facility] Hospitalist by Dr. Braxton Chawla at 20:05 hr s on 04/01/17. SITE ID: [id number]
--- NOTE | 2017-04-01 20:10 | CT Report ---
REVISED: THIS REPORT WAS ORIGINALLY SIGNED ON 04/01/2017 @ 1238. ORDERS LINKED ON 04/05/2017. EXAMINATION: CTA HEAD AND NECK COMPARISON: CT angiogram, 11/04/2016 CLINICAL HISTORY: Right-sided weakness, global aphasia Technique. CT head. Contiguous axial sections, skull base to vertex, no contrast is given. Postcontrast head CT. Contiguous axial sections, skull base to vertex, after intravenous contrast administration. Head CTA. High-resolution contiguous sections, skull base to vertex, after intravenous contrast administration. Three-dimensional MIP reconstructions from source data. Neck CTA. Contiguous axial sections, through the neck, after intravenous contrast administration. Three-dimensional reconstructions from source data. Stenosis is measured by NASCET type criteria. In accordance with CT protocol optimization, one or more of the following dose reduction techniques were utilized for this exam: automated exposure control, adjustment of mA and/or KV based on patient size, or use of iterative reconstructive technique. FINDINGS: CT head: No intracranial hemorrhage. No mass lesions. Interval development of new low attenuation in the right parieto-occipital cortex, worsened since the 11/04/2016 prior study. Low attenuation more superiorly involving the right posterior frontal parietal cortex (3, 23), is similar or somewhat worsened. Low attenuation in the right cerebellar hemisphere is again demonstrated, as before. Fairly extensive white matter low-attenuation involving left frontal cortex is similar worsened. 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 Soft tissue also extends to the area of the right skull base, best demonstrated on series 7 image 84. There is qualitatively widening of the right hypoglossal canal, concerning for tumor involvement. There has been interval left-sided canal up mastoidectomy, remaining left mastoid air cells appear opacified. The bony nasal septum has been partially resected, in the interval. There has also been at least partial ethmoidectomy, now with fluid in the sphenoid sinuses. Sphenoethmoidal recesses have been decompressed. Postcontrast head CT: No abnormal parenchymal enhancement. No mass lesions within the brain parenchyma. Head CTA: Right internal carotid artery: Interval development of apparent moderate, 30-50% stenosis of the right internal carotid artery at the skull base, dissections or is not excluded. Right internal carotid artery otherwise is quite irregular, with extensive calcification to the siphon. There is likely at least moderate, greater than 40 % stenosis at the level of the paraclinoid segment (7, 431). This is worsened since the prior study. Prominent right P-comm is noted. Right M1, M2 and visualized distal segments are relatively unremarkable. Right A1, A2 and visualized distal segments are unremarkable. Left internal carotid artery: Left internal carotid artery shows no evidence of stenosis or aneurysm through the petrous segment. There is extensive calcification through the siphon, as before, with likely at least 30-50% stenosis at the anterior genu/paraclinoid segment. Left A1, A2 and visualized distal segments are relatively unremarkable. Left M1 segment is relatively unremarkable, there is worsening of high-grade stenosis of a left frontopolar branch (7, 433), now with apparent near occlusion. Flow in the left frontopolar branches is qualitatively diminished in comparison to 11/04/2016 prior study. Also notable is a now occluded or near occluded left anterior temporal artery (7 , 425). Posterior circulation: Intracranial vertebral arteries are left-sided dominant. Left vertebral artery is quite irregular, at least moderate, 30-50% stenosis in the left lateral medullary cistern (7, 395), worsened since the prior study. Basilar artery is irregular, with multiple areas of moderate, 30-50% stenosis. Hypoplastic right P1 segment is concordant with prominent right P-comm. Similarly, hypoplastic left P1 segment is concordant with prominent left P-comm. The P2 and visualized distal segments are relatively unremarkable. Neck CTA: Extensive multilevel cervical spondylosis, with at least moderate bony canal stenosis at C5-C6. Visualize right upper chest shows no pulmonary nodules or masses. No pneumothorax. Shows left upper chest shows no pulmonary nodules or masses. No pneumothorax. No cervical adenopathy or masses, except as described above. Arterial structures: Right carotid artery: Right common carotid artery originates normally from the brachiocephalic, shows no evident stenosis or dissection to the bifurcation. Right internal carotid artery shows No evident stenosis or dissection until approaching the skull base , where there is stenosis as described above. Left carotid artery: Left common carotid artery originates normally from the aortic arch, shows No evident stenosis or dissection bifurcation. Left internal carotid artery shows No evident stenosis dissection to the skull base. Impression: CT head: Interval, in comparison with 11/04/2016, development of a new area of encephalomalacia in the right parieto-occipital cortex, concordant with interval infarct. Again demonstrated is old right cerebellar infarct, and prior right sided posterior frontal infarct. Postcontrast head CT: No abnormal parenchymal enhancement. No mass lesions. Head CTA: Interval worsening of high-grade proximal stenosis of a prominent left frontopolar branch, now near occluded, as detailed, concordant with clinical symptoms. There is qualitatively diminished flow in the left frontal MCA vessels. Also notable is a now occluded or near occluded left anterior temporal artery (7 , 421). At least 40% stenosis of the right paraclinoid segment, worsened. 30-50% stenosis of the Left vertebral artery left lateral medullary cistern, worsened since the prior study. 30-50% stenosis of the right internal carotid artery skull base, not present on the prior study, clinical correlation with possibility of skull base radiation, this may be postradiation effect. There is also soft tissue density in this area , more conspicuous than on the prior study, this may reflect tumor involvement. Postcontrast head CT: No abnormal parenchymal enhancement. No parenchymal masses. Neck CTA: No evident extracranial arterial stenosis or dissection, except as described above. Multilevel cervical spondylosis, as detailed. Findings were discussed directly with the hospitalist at [facility], the patient had been transferred, at approximately 7:50 PM, 04/01/2017. The above critical findings were discussed with [facility] Hospitalist by Dr. Braxton Chawla at 20:05 hrs on 04/01/17. Referring Provider Line: [phone] SITE ID: [id number]
== END 2017-04-01 14:17 | disposition short-term general hospital (02) ==
LOC: EDBD → EDUNIT# → ED 11:43
DX: I63.30 Cerebral infarction due to thrombosis of unspecified cerebral artery (principal); R47.01 Aphasia; G81.91 Hemiplegia, unspecified affecting right dominant side; I10 Essential (primary) hypertension; E78.00 Pure hypercholesterolemia, unspecified; E11.9 Type 2 diabetes mellitus without complications; Z79.84 Long term (current) use of oral hypoglycemic drugs; Z98.84 Bariatric surgery status; Z79.82 Long term (current) use of aspirin; Z87.891 Personal history of nicotine dependence
CPT/HCPCS: 36415; 70450; 70496; 70498; 80053; 83690; 85025; 85610; 85730; 93005; 96374; 99285; J2997; Q3014; Q9967